=== PATIENT | male | born 1950 | race Caucasian/White ===

== ENCOUNTER 2017-12-28 01:47 | Outpatient (CLI) | payer MEDICARE, OTHER, SELFPAY ==
[2017-12-28 10:53] LABS: Hemoglobin A1C 10.5 % (4.5-6.2)
== END 2017-12-28 02:07 ==
PROVIDERS: PCP Family Medicine
DX: E11.9 Type 2 diabetes mellitus without complications (principal)
CPT/HCPCS: 36415; 83036

== ENCOUNTER 2019-01-11 08:33 | Outpatient (CLI) | payer MEDICARE, OTHER, SELFPAY ==
--- NOTE | 2019-01-11 09:45 | DI.RAD_ITS ---
EXAM: XR KNEE RT 3V AP,LAT,BIMAL INDICATION: 8 month hx pain right knee, M25.561. COMPARISON: No exams were available for comparison TECHNIQUE: 2D digital imaging was performed. FINDINGS: The joint spaces are well maintained. Chondrocalcinosis is noted in the menisci. No joint effusion is visible. There is mild periarticular spurring. There is spurring at the tibial tubercle as well as at the Achilles insertion and patellar tendon origin. There is mild anterior soft tissue swellin g. Vascular calcifications are incidentally noted. IMPRESSION: Mild degenerative changes. Chondrocalcinosis.
== END 2019-01-11 08:53 ==
PROVIDERS: PCP Family Medicine; Visit Provider Family Medicine
DX: M25.561 Pain in right knee (principal); M17.11 Unilateral primary osteoarthritis, right knee
CPT/HCPCS: 73562

== ENCOUNTER 2019-05-16 08:51 | Outpatient (CLI) | payer MEDICARE, OTHER, SELFPAY ==
[2019-05-16 13:16] LABS: BUN 20 mg/dL (7-18); CREATININE 1.04 mg/dL (0.70-1.30); Calcium 9.5 mg/dL (8.5-10.1); Calculated LDL 79 mg/dL (<100); Chloride 99 mmol/L (98-107); Cholesterol 158 mg/dL (<200); Glucose 201 mg/dL (74-106); HDL Cholesterol 73 mg/dL (40-60); Potassium 4.8 mmol/L (3.5-5.1); Sodium 136 mmol/L (136-145); Triglyceride 31 mg/dL (<150)
[2019-05-16 13:54] LABS: Hemoglobin A1C 10.4 % (3.8-5.6)
== END 2019-05-16 09:11 ==
PROVIDERS: PCP Family Medicine; Visit Provider Family Medicine
DX: I10 Essential (primary) hypertension (principal); E11.39 Type 2 diabetes mellitus with other diabetic ophthalmic complication; E11.65 Type 2 diabetes mellitus with hyperglycemia
CPT/HCPCS: 36415; 80048; 80061; 83036

== ENCOUNTER 2020-01-17 10:36 | Outpatient (REF) | payer MEDICARE, OTHER, SELFPAY | END 2020-01-17 10:56 | LOC: LBN 10:36 | PROVIDERS: PCP Family Medicine; Visit Provider Emergency Medicine | DX: M25.461 Effusion, right knee (principal) | CPT/HCPCS: 87070; 87205 ==

== ENCOUNTER 2020-01-21 01:18 | Outpatient (CLI) | payer MEDICARE, OTHER, SELFPAY ==
--- NOTE | 2020-01-21 07:15 | DI.RAD_ITS ---
EXAM: XR KNEE RT 3V AP,LAT,BIMAL CLINICAL HISTORY: right knee pain/effusion,M25.461 TECHNIQUE: COMPARISON: CR XR KNEE RT 3V AP,LAT,BIMAL from 01/11/2019 FINDINGS: Three views were obtained. There is moderate to severe narrowing of the medial tibiofemoral cartilag inous joint space. There is presumed chondral calcification probably in the medial meniscus. There is mild scalloping of the articular surface the medial femoral condyle. Slight marginal osteophyte f ormation noted at multiple sites. Patellar enthesophytes noted. No other significant bony abnormali ty seen. IMPRESSION: Degenerative changes most prominent involving medial tibiofemoral joint. RADIATION DOSE DELIVERED: Total DLP
== END 2020-01-21 01:38 ==
PROVIDERS: PCP Family Medicine; Visit Provider Family Medicine
DX: M17.11 Unilateral primary osteoarthritis, right knee (principal); M76.9 Unspecified enthesopathy, lower limb, excluding foot
CPT/HCPCS: 73562

== ENCOUNTER 2020-01-28 02:18 | Outpatient (CLI) | payer MEDICARE, OTHER, SELFPAY ==
--- NOTE | 2020-01-28 13:00 | NS.NUTBLAN_ITS ---
ASSESSMENT: Devin ( 69 y/o male) presents with referral for DM 2 education r/t elevated A1c. He is on glipizide and 1000mg metformin BID. He reports that he is active working in his garden. Drives truck for work. Reviewed diet hx revealing typical breakfast of oatmeal, apples, coffee with C+S. He says he has an occasional doughnut. Lunches are usually sandwiches, drinks seltzer water. Supper is often with his family and he eats whatever they have. An example he gave was costello's pie. He lost his over the summer and she was the one who did most of the cooking. Devin stated the took his BG this am and it was 140. A1c was 11.8 on 01/06 and shows documentation of >10% X 4 mos. 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 He does not appear to be overweight and reports that he is ~185lbs. He has been having knee problems and states that anu is arranging for ortho appt through his PCP. BG reading with fingerstick on this visit revealed 237mg/dl ~1.5 hrs postprandial. Devin reported eating 4 pieces cheese for lunch.He does not use internet, email or Phone apps normally. INTERVENTION: Reviewed desirable BG ranges, CHO counting concepts, Carbs and cals phone sandrine, Provided literature and demonstration on aforementioned. Explained and provided literature with examples on CHO and PRO pairing to help with BG levels. Provided new ACCU-Check Guide Me glucometer with 10 test strips. strips. Reviewed risks and benefits of [facility] diet compliance. Gave guidelines and goals for CHO intake ( <60g per meal period). Explained simple vs. complex CHO. Recommended community outreach health gymnastics coach for support. Recommended that he utilize [employer] sandrine with new glucometer for remote monitoring by RD. MONITORING and EVAL: Devin has agreed to have his grandson or other family member help him to set up the carbs and cals phone sandrine to help with CHO counting. He has agreed to return for F/U visit with this RD on 03/23/20. He has agreed to track his BG 1x/day staggering FBG and meal periods daily for one week. He states he will consider the tracking sandrine on his new glucometer.
== END 2020-01-28 02:38 ==
PROVIDERS: PCP Family Medicine; Visit Provider Dietitian, Registered
DX: E11.9 Type 2 diabetes mellitus without complications (principal); Z79.84 Long term (current) use of oral hypoglycemic drugs; Z71.3 Dietary counseling and surveillance
CPT/HCPCS: 97802

== ENCOUNTER 2020-01-30 01:16 | Outpatient (CLI) | payer MEDICARE, OTHER, SELFPAY ==
[2020-01-30 12:26] LABS: Abs Immature Grans 0.01 10^3/uL (0.0-0.06); Absolute Basophil Count 0.04 10^3/uL (0.0-0.2); Absolute Eosinophil Count 0.13 10^3/uL (0.0-0.7); Absolute Lymphocyte Count 1.83 10^3/uL (1.2-3.4); Absolute Monocyte Count 0.57 10^3/uL (0.1-0.8); Absolute Neutrophil Count 3.51 10^3/uL (1.2-6.7); Basophils % 0.7; Eosinophils % 2.1; HCT 41.5 % (40.0-50.0); HGB 14.6 g/dL (13.5-17.5); Immature Grans % 0.2; MCH 30.2 pg (27.0-33.0); MCHC 35.2 % (32.0-36.0); MCV 85.7 fL (80-95); MPV 10.9 fL (8.0-11.0); Monocytes % 9.4; Neutrophils % 57.6; Nucleated RBC 0 %; Platelet Count 233 10^3/uL (130-400); RBC 4.84 10^6/uL (4.36-5.78); RDW 12.6 % (11.8-14.1); RDW-SD 39.2 fL; WBC 6.09 10^3/uL (4.4-10.8)
[2020-01-30 13:09] LABS: Iron 108 ug/dL (65-175); Total Iron Binding Capacity 368 ug/dL (250-450); Transferrin Sat 29 % (20-55)
[2020-01-30 13:24] LABS: ALT 22 U/L (16-63); AST 17 U/L (15-37); Albumin 4.3 g/dL (3.4-5.0); Alkaline Phosphatase 60 U/L (46-116); Anion Gap 8.8 mmol/L (3-11); BUN 27 mg/dL (7-18); Bilirubin, Total 1.1 mg/dL (0.2-1.0); CO2 27.2 mmol/L (21.0-32.0); Calcium 9.4 mg/dL (8.5-10.1); Chloride 96 mmol/L (98-107); Ferritin 367 ng/mL (26-388); Glucose 133 mg/dL (74-106); Potassium 4.9 mmol/L (3.5-5.1); Sodium 132 mmol/L (136-145); Total Protein 7.7 g/dL (6.4-8.2)
== END 2020-01-30 01:36 ==
PROVIDERS: PCP Family Medicine; Visit Provider Family Medicine
DX: E11.9 Type 2 diabetes mellitus without complications (principal); M11.20 Other chondrocalcinosis, unspecified site; R79.89 Other specified abnormal findings of blood chemistry
CPT/HCPCS: 36415; 80053; 82728; 83540; 83550; 85025

== ENCOUNTER → 2020-02-05 10:47 | Outpatient (BNVA) | payer MEDICARE, OTHER, SELFPAY | PROVIDERS: PCP Family Medicine; Referring Provider Family Medicine; Visit Provider Orthopaedic Surgery | DX: M25.461 Effusion, right knee (principal); M25.561 Pain in right knee; M17.11 Unilateral primary osteoarthritis, right knee | CPT/HCPCS: 20610; 99201; J1040 ==

== ENCOUNTER 2020-02-05 12:23 | Outpatient (REF) | payer MEDICARE, OTHER, SELFPAY ==
[2020-02-05 13:42] LABS: Clarity Clear
[2020-02-05 13:47] LABS: Mononuclear Cells 96 %; Nucleated Cells 288 uL (0); Polynuclear Cells 4 %
[2020-02-05 14:19] LABS: Crystals (BF) No Crystals seen
== END 2020-02-05 12:43 ==
LOC: LBN 12:23
PROVIDERS: PCP Family Medicine; Visit Provider Orthopaedic Surgery
DX: M25.461 Effusion, right knee (principal)
CPT/HCPCS: 87070; 87205; 89051; 89060

== ENCOUNTER 2020-06-08 08:36 | Outpatient (CLI) | payer MEDICARE, OTHER, SELFPAY ==
--- NOTE | 2020-06-08 08:30 | RT.EKG_ITS ---
APPROVED REPORT Exam: Resting ECG Patient Location: O HR:85 bpm ECG Measurements Heart Rate 85 AXIS WY 121 P 64 QRSd 92 QRS 17 QT 367 T 7 QTc 436 Conclusion Sinus rhythm...normal P axis, V-rate 60- 99
== END 2020-06-08 08:37 | disposition home or self-care (01) ==
LOC: DI.CM 08:37
PROVIDERS: PCP Family Medicine; Visit Provider Nurse Practitioner Family
DX: Z01.818 Encounter for other preprocedural examination (principal); I10 Essential (primary) hypertension
CPT/HCPCS: 93010

== ENCOUNTER 2021-05-03 03:46 | Outpatient (CLI) | payer MEDICARE, OTHER, SELFPAY ==
[2021-05-03 11:25] LABS: Calculated LDL 72 mg/dL (<100); Cholesterol 162 mg/dL (<200); HDL Cholesterol 83 mg/dL (40-60); Triglyceride 38 mg/dL (<150)
== END 2021-05-03 03:47 | disposition home or self-care (01) ==
LOC: LBO 03:46
PROVIDERS: PCP Nurse Practitioner Family; Visit Provider Nurse Practitioner Family
DX: E78.5 Hyperlipidemia, unspecified (principal); E11.9 Type 2 diabetes mellitus without complications; Z79.4 Long term (current) use of insulin
CPT/HCPCS: 36415; 80061; 83036

== ENCOUNTER 2021-06-21 11:26 | Outpatient (CLI) | payer MEDICARE, OTHER, SELFPAY ==
--- NOTE | 2021-06-21 10:15 | DI.RAD_ITS ---
Exam(s) XR KNEE RT 3V AP,LAT,BIMAL EXAM: XR KNEE RT 3V AP,LAT,BIMAL INDICATION: right knee pain. COMPARISON: CR XR KNEE RT 3V AP,LAT,BIMAL from 01/21/2020 TECHNIQUE: 2D digital imaging was performed. Two views FINDINGS: A right total knee prosthesis is seen. The components appear show satisfactory alignment. There are no surrounding bony lucencies. Joint effusion is visible. There is anterior soft tissue swelling. Impression: Joint effusion and anterior soft tissue swelling. DATA REPOSITORY: RADIATION DOSE DELIVERED:
== END 2021-06-21 11:27 | disposition home or self-care (01) ==
LOC: DIORS 11:26
PROVIDERS: PCP Nurse Practitioner Family; Referring Provider Nurse Practitioner Family; Visit Provider Student in an Organized Health Care Education/Training Program
DX: M25.561 Pain in right knee (principal); M25.461 Effusion, right knee; Z96.651 Presence of right artificial knee joint; M24.661 Ankylosis, right knee; T84.84XA Pain due to internal orthopedic prosthetic devices, implants and grafts, initial encounter
CPT/HCPCS: 73562; 99214

== ENCOUNTER 2021-06-24 02:11 | Outpatient (CLI) | payer MEDICARE, OTHER, SELFPAY ==
--- NOTE | 2021-06-24 06:30 | DI.US_ITS ---
Exam(s) US LOWER EXTREMITY VENOUS RT EXAM: US LOWER EXTREMITY VENOUS RT CLINICAL HISTORY: pain,swelling-?DVT,painful total knee replacement, m79.604. TECHNIQUE: Lower extremity venous ultrasound performed using grayscale, color-flow, and spectral Do ppler analysis. COMPARISON: No exams were available for comparison FINDINGS: The common femoral, femoral and popliteal veins demonstrate normal compressibility, augmentation, and color Doppler. The posterior tibial veins are patent. No saphenous vein thrombosis or other superfi cial venous thrombosis is seen. 4.6 centimeter maximal dimension Motta's cyst. IMPRESSION: Motta's cyst no evidence of DVT. DATA REPOSITORY:
== END 2021-06-24 02:31 ==
PROVIDERS: PCP Nurse Practitioner Family; Visit Provider Student in an Organized Health Care Education/Training Program
DX: M79.604 Pain in right leg (principal); T84.84XA Pain due to internal orthopedic prosthetic devices, implants and grafts, initial encounter; Z96.651 Presence of right artificial knee joint; M71.21 Synovial cyst of popliteal space [Baker], right knee
CPT/HCPCS: 93971

== ENCOUNTER 2021-07-06 03:22 | Outpatient (CLI) | payer MEDICARE, OTHER, SELFPAY ==
[2021-07-06 07:33] LABS: ESR 1 mm/hr (0-20)
[2021-07-06 08:43] LABS: C-Reactive Protein 0.13 mg/dL (0.0-0.3)
[2021-07-06 10:17] LABS: Hemoglobin A1C 8.9 % (<5.7)
== END 2021-07-06 03:23 | disposition home or self-care (01) ==
LOC: LBO 03:22
PROVIDERS: PCP Nurse Practitioner Family; Visit Provider Student in an Organized Health Care Education/Training Program
DX: E11.9 Type 2 diabetes mellitus without complications (principal); Z79.4 Long term (current) use of insulin; T84.84XA Pain due to internal orthopedic prosthetic devices, implants and grafts, initial encounter; Z96.651 Presence of right artificial knee joint
CPT/HCPCS: 36415; 85652; 83036; 86140

== ENCOUNTER 2021-07-26 01:56 | Outpatient (CLI) | payer MEDICARE, OTHER, SELFPAY ==
[2021-07-27 11:30] LABS: COVID-19 RT-PCR UVMMC Result Negative (Negative)
== END 2021-07-26 01:57 | disposition home or self-care (01) ==
LOC: LBO 01:56
PROVIDERS: PCP Nurse Practitioner Family; Visit Provider Student in an Organized Health Care Education/Training Program
DX: Z20.822 Contact with and (suspected) exposure to COVID-19 (principal); Z01.818 Encounter for other preprocedural examination
CPT/HCPCS: 87635; U0003; U0005

== ENCOUNTER 2021-07-27 12:23 | Day surgery (SDC) | payer MEDICARE, OTHER, SELFPAY ==
[2021-07-27] VITALS (8 sets, daily range): BP systolic 75–151; BP diastolic 43–99; PULSE 73–91; RESP 13–25; TEMP 36.2–36.6; O2SAT 92–99; BMI 26.1
[2021-07-27] MEDS: Acetaminophen 500 MG TAB 1000 MG PO (12:54)
[2021-07-27] MEDS: Gabapentin 300 MG CAP PO (12:55)
[2021-07-27] MEDS: Celecoxib 200 MG CAP 400 MG PO (12:55)
[2021-07-27] MEDS: Lactated Ringers 1,000 ML 80 ML IV (13:30)
--- NOTE | 2021-07-27 13:56 | ANES.PREOP_ITS ---
General Info Date of Service Date Performed: 07/27/21 Height: 5 ft 11 in Weight: 85 kg Body Mass Index (BMI): 26.1 Surgical Procedure: Operation Date: 07/27/21 15:25 Proposed Procedure Side Surgeon p Knee Arthroscopy Synovectomy & Manipulation Right Varghese Schwartz MD Meds Allergies and Home Medications Allergies Allergy/AdvReac Type Severity Reaction Status Date / Time No Known Allergies Allergy Verified 07/27/21 12:42 Home Medication Medication Instructions Recorded aspirin 325 mg tablet 0.5 tab PO DAILY tab-cap 08/29/12 cinnamon bark 500 mg capsule 1,000 mg PO DAILY 08/30/12 magnesium oxide 500 mg PO DAILY 01/06/14 triamcinolone acetonide 0.1 % 1 applic TP BID #30 gm 01/10/19 topical cream indomethacin 50 mg capsule 50 mg PO TID PRN #30 cap 01/10/20 blood-glucose meter #1 ea 02/05/20 blood sugar diagnostic #100 ea 04/01/20 lancets #100 ea 04/01/20 metformin 1,000 mg tablet 1,000 mg PO BID #180 tab-cap 06/05/20 (Glucophage) lisinopril 20 mg tablet 20 mg PO DAILY #90 tab 06/08/20 lovastatin 40 mg tablet 40 mg PO DAILY #90 tab-cap 08/07/20 sildenafil 25 mg tablet (Viagra) 25 mg PO DAILY PRN #2 tab 01/04/21 glipizide 10 mg tablet (Glucotrol) 10 mg PO BID #180 tab-cap 04/16/21 blood sugar diagnostic (Accu-Chek #100 ea 05/07/21 Guide test strips) varicella-zoster glycoE vacc-[id number] 0.5 ml IM ONCE #1 each 05/07/21 adj(PF) 50 mcg/0.5 mL IM susp, kit (Shingrix (PF)) acetaminophen 500 mg tablet mg 07/27/21 (Tylenol Extra Strength) ibuprofen 200 mg tablet (Advil) 600 mg PO Q6H PRN 07/27/21 Current Visit Medications: Current Medications Generic Name Dose Route Start Last Admin Trade Name Freq PRN Reason Stop Dose Admin Acetaminophen 1,000 mg 07/27/21 06:00 07/27/21 12:54 Acetaminophen 500 Mg Tab PO 1,000 mg PREOP ELIZABETH Administration Celecoxib 400 mg 07/27/21 06:00 07/27/21 12:55 Celecoxib 200 Mg Cap PO 400 mg PREOP ELIZABETH Administration Gabapentin 300 mg 07/27/21 06:00 07/27/21 12:55 Gabapentin 300 Mg Cap PO 300 mg PREOP ELIZABETH Administration Ringer's Solution 1,000 mls @ 80 mls/hr 07/27/21 06:00 07/27/21 13:30 IV 08/25/21 23:59 80 mls/hr INFUSION ELIZABETH Administration Cefazolin Sodium/Dextrose 2 gm in 50 mls @ 100 mls/hr 07/27/21 06:00 Ancef Duplex IVPB 08/25/21 23:59 PREOP ELIZABETH IV Miscellaneous Supplies 1 each 07/27/21 06:00 Iv Access IV 08/25/21 23:59 DIRECTED ELIZABETH Sodium Chloride 0 ml 07/27/21 06:00 Normal Saline Flush 10 Ml Syr IV 08/25/21 23:59 PRN PRN Sodium Chloride 0 ml 07/27/21 06:00 Normal Saline 10 Ml Vial IJ 08/25/21 23:59 DIRECTED PRN Sterile Water 0 ml 07/27/21 06:00 Water,Injection,Sterile 10 Ml Vial IJ 08/25/21 23:59 DIRECTED PRN PFSH Active Problems Active Problems: Problem Status Onset Code Diabetic retinopathy 09/04/12 E11.319 Hyperlipidemia 09/05/13 E78.5 Osteoarthritis of right knee M17.11 Positional vertigo Essential hypertension I10 Chondrocalcinosis M11.20 Effusion, right knee M25.461 Osteoarthritis of knee M17.10 Diabetes mellitus type 2, insulin dependent E11.9, Z79.4 Bunion M21.619 Onychomycosis B35.1 Actinic keratosis L57.0 Erectile dysfunction N52.9 Onychogryphosis L60.2 Callus of foot L84 History of total right knee replacement Z96.651 Painful total knee replacement, right T84.84XA, Z96.651 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 POP; LEFT, jpt. reports both sides Hx of colonoscopy Hx of total knee arthroplasty R knee Tobacco Smoking/Tobacco Use Status: Never Passive smoking exposure: Yes Alcohol Alcohol Intake: current Alcohol intake frequency: a few times a month Alcohol type: beer Substance Use Substance use: Never Substance use type: does not use Details: alcohol: t-3. one beer Vital Signs and Lab Results Vital Signs Most Recent Vital Signs in EMR: Most Recent Vital Signs Temp Pulse Resp BP Pulse Ox 36.6 C 91 H 16 151/79 H 98 07/27/21 13:01 07/27/21 13:01 07/27/21 13:01 07/27/21 13:01 07/27/21 13:01 Point of Care Results Point of Care Results: Finger Stick Blood Glucose 195 07/27/21 13:21 Lab Results Blood Type / Crossmatch: No Data to Display Complete Blood Count: No Data to Display Complete Metabolic Panel: Hemoglobin A1c 8.9 % (<5.7) H 07/06/21 07:24 07/06/21 C-Reactive Protein 0.13 mg/dL (0.0-0.3) 07/06/21 07:24 07/06/21 Liver Function Panel: No Data to Display Coagulation Panel: No Data to Display Cardiac Panel: No Data to Display Arterial Blood Gas: No Data to Display Venous Blood Gas: No Data to Display Pancreas Panel: No Data to Display Thyroid Panel: No Data to Display Infectious Disease: Coronavirus (COVID-19)(PCR) Negative (Negative) 07/26/21 08:15 07/26/21 Blood Cultures: No Data to Display Toxicology Panel: No Data to Display Imaging and Studies Imaging and Studies Study information below may be from another EMR and interpreted by another provider. Please see original notes in EMR for more complete details. EKG Summary: DATE/TIME OF SERVICE: 06/08/20826 : 1950PERFORMING LOCATION: [facility] APPROVED REPORT Exam: Resting ECG Patient Location: O HR:85 bpm ECG Measurements Heart Rate 85 AXIS NC 121 P 64 QRSd 92 QRS 17 QT 367 T7 QTc 436 Conclusion Sinus rhythm...normal P axis, V-rate 60- 99 Anesthesia Assessment and Plan Anesthesia History Personal History: No History of Anesthesia Complications Family History: No Family History of Anesthesia Complications Exercise Tolerance Exercise Tolerance: Metabolic Equivalents>4 Pertinent Negatives Pertinent Negatives: No Symptoms of GERD Cardiac & Pulmonary Exam Cardiac Exam: Normal S1/S2 Heart Sounds Pulmonary Exam: Clear Bilateral Breath Sounds Implantable Cardiac Device Does patient have a Pacemaker or an ICD?: No Airway Exam Known Difficult Airway: No Mallampati Class: 1 Mouth Opening: Narrow (< 3cm) Thyromental Distance: Greater than 3 cm Neck Range of Motion: Full ROM Neck Circumference: Normal Teeth Condition: Other (Has lower front teeth only) ASA Classification ASA Score: ASA 3 Emergency Case?: No NPO Status NPO Status: NPO Clears >2 hours, Solids >8 hours Anesthesia Plan Resuscitation Status: Full Code Anesthesia Technique: General Anesthesia Airway Planned: LMA Monitors Used: Standard Monitors
--- NOTE | 2021-07-27 13:57 | HPE_ITS ---
Assessment and Plan Assessment and plan (1) Painful total knee replacement, right: Status: Acute (2) Fibrosis of right knee joint: Status: Acute Assessment and plan: Bradley is a 70-year-old who has a right knee replacement. He has had difficulties with stiffness and with pain. As an option to hopefully treat both of those I offered arthroscopic synovectomy of the right knee. I did discuss him that this is a treatment that may not improve his symptoms but has a chance to. Is imperative that he works diligently with his range of motion and with daily exercises following the surgery. Furthermore, he does have a painful deep suture which I can remove at the same time with a small incision. I reviewed all this with him. I discussed the risk of the procedure to include bleeding, infection, pain, stiffness, damage to nerves and vessels, damage to muscle and tendons, blood clot, continued symptoms. Despite these risk, he elects to proceed. History of Present Illness Narrative: Bradley is a 70-year-old who is status post right knee replacement. Fortunately he has had issues with stiffness and pain about the right knee. He has failed a host of conservative option and is here today for knee arthroscopy with synovectomy. [facility] All Active Problems Diabetic retinopathy (Acute 09/04/12) Hyperlipidemia (Acute 09/05/13) Osteoarthritis of right knee (Acute) Positional vertigo (Acute) Essential hypertension (Acute) Chondrocalcinosis (Acute) knees Effusion, right knee (Acute) Osteoarthritis of knee (Acute) Diabetes mellitus type 2, insulin dependent (Acute) Bunion (Acute) Onychomycosis (Acute) Actinic keratosis (Acute) Erectile dysfunction (Acute) Onychogryphosis (Acute) Callus of foot (Acute) History of total right knee replacement (Acute) Painful total knee replacement, right (Acute) Fibrosis of right knee joint (Acute) Medical History Hx of essential hypertension Hx of gout Hx of type 2 diabetes mellitus Hx of vertigo Surgical History Extraction of cataract 04/29/14; DR. POP; LEFT, jpt. reports both sides Hx of colonoscopy Hx of total knee arthroplasty R knee Family History Mother , 80 Cancer Father , at 24 of blood poisoning No problems noted. Sister No problems noted. Brother No problems noted. Maternal Grandfather , 75 Heart disease Paternal Grandfather No problems noted. Maternal Grandmother No problems noted. Paternal Grandfather No problems noted. Son No problems noted. Son No problems noted. Son No problems noted. Daughter No problems noted. Social History Smoking/Tobacco Use Status: Never Smoking risk assessment performed?: Yes Alcohol Intake: current Alcohol Intake frequency: a few times a month Alcohol type: beer Drug use: Never Substance use type: does not use Details: alcohol: t-3. one beer Caregiver/Support person: No Household members: none Housing: house Communication Needs: None Pets and animals: Yes Pets and animals: dog(s) Sexually active: No Do you think of yourself as: straight/heterosexual Current gender identity: male What is your relationship status?: How often do you talk on the phone with friends or family?: three or more times per week How often do you get together with friends or relatives?: twice per week How often do you attend quaker or bahai services?: decline to answer Do you belong to any clubs or organized social groups?: no Panel score (0-1 are the most socially isolated patients): 1 What type of physical activity do you participate in: other Details: Bowling and decline to answer Duration: 15-30 minutes/day Frequency: 1-2 times per week Bekah/Pentecostal: None Special bekah needs: No Seatbelt use: always Helmet use: Yes Helmet use: sometimes Drive intox or ride w/intox combine driver: No Do you feel safe at home: Yes Do you feel safe in your relationship?: Yes Meds Allergies and Home Medications Allergies Allergy/AdvReac Type Severity Reaction Status Date / Time No Known Allergies Allergy Verified 07/27/21 12:42 Home Medications Medication Instructions Recorded Confirmed Type aspirin 325 mg tablet 0.5 tab PO DAILY tab-cap 08/29/12 07/27/21 History cinnamon bark 500 mg capsule 1,000 mg PO DAILY 08/30/12 07/27/21 History magnesium oxide 500 mg PO DAILY 01/06/14 07/27/21 History triamcinolone acetonide 0.1 % 1 applic TP BID #30 gm 01/10/19 07/27/21 Rx topical cream indomethacin 50 mg capsule 50 mg PO TID PRN #30 cap 01/10/20 07/27/21 Rx blood-glucose meter #1 ea 02/05/20 07/26/21 Rx blood sugar diagnostic #100 ea 04/01/20 07/26/21 Rx lancets #100 ea 04/01/20 07/26/21 Rx metformin 1,000 mg tablet 1,000 mg PO BID #180 tab-cap 06/05/20 07/27/21 Rx (Glucophage) lisinopril 20 mg tablet 20 mg PO DAILY #90 tab 06/08/20 07/27/21 Rx lovastatin 40 mg tablet 40 mg PO DAILY #90 tab-cap 08/07/20 07/27/21 Rx sildenafil 25 mg tablet (Viagra) 25 mg PO DAILY PRN #2 tab 01/04/21 07/27/21 Rx glipizide 10 mg tablet (Glucotrol) 10 mg PO BID #180 tab-cap 04/16/21 07/27/21 Rx blood sugar diagnostic (Accu-Chek #100 ea 05/07/21 07/26/21 Rx Guide test strips) varicella-zoster glycoE vacc-AS01B 0.5 ml IM ONCE #1 each 05/07/21 07/26/21 Rx adj(PF) 50 mcg/0.5 mL IM susp, kit (Shingrix (PF)) acetaminophen 500 mg tablet mg 07/27/21 History (Tylenol Extra Strength) ibuprofen 200 mg tablet (Advil) 600 mg PO Q6H PRN 07/27/21 07/27/21 History Exam Resp Effort & Inspection: normal respiratory effort Auscultation: clear to auscultation bilaterally Cardio Rate: regular rate Rhythm: regular rhythm Extrem Other: Range of motion is approximately 5 to 105 degrees. There is significant blocks to deeper flexion. There is also prominent suture palpated just medial to the central portion of the incision over the patella. Results Last Vital Signs Temp 36.6 C 07/27/21 13:01 Pulse 91 H 07/27/21 13:01 Resp 16 07/27/21 13:01 BP 151/79 H 07/27/21 13:01 Pulse Ox 98 07/27/21 13:01
[2021-07-27] MEDS: ceFAZolin 2 GM/50 ML BAG IVPB (14:28)
[2021-07-27] MEDS: Bupivacaine 0.5% Pres-Free 30 ML VIAL (14:51)
--- NOTE | 2021-07-27 15:18 | W.PM.DSUDISC ---
Discharge Plan Disposition Patient Disposition: HOME Condition: Good Discharge Details Reason For Visit: Right Knee Pain/Arthrofibrosis after TKA Attending Provider: Varghese Schwartz Primary Care Provider: Laron Prado Home Meds and New Rx's Prescriptions: New hydrocodone-acetaminophen 5-325 mg tablet 1 tab PO Q6H PRN (Reason: pain) Qty: 10 0RF acetaminophen 500 mg tablet 500 mg PO Q6H PRN PRN (Reason: pain) Qty: 40 3RF ibuprofen 600 mg tablet 600 mg PO TID PRN (Reason: pain) Qty: 60 3RF Continued triamcinolone acetonide 0.1 % cream 1 applic TP BID Qty: 30 2RF lisinopril 20 mg tablet 20 mg PO DAILY Qty: 90 3RF sildenafil [Viagra] 25 mg tablet 25 mg PO DAILY PRN (Reason: sexual activity) Qty: 2 4RF Rx Instructions: administer 30 minutes to 4 hours before activity (DME) Accu-Chek Guide test strips Strip See Rx Instructions .Route Qty: 100 3RF Rx Instructions: Daily Shingrix (PF) 50 mcg/0.5 mL suspension for reconstitution 0.5 ml IM ONCE Qty: 1 0RF Label Comments: pt. states last shot 1.5 months ago Rx Instructions: as a single dose aspirin 325 MG tablet 0.5 tab PO DAILY 0RF cinnamon bark 500 MG capsule 1,000 mg PO DAILY 0RF magnesium oxide 250 MG tablet 500 mg PO DAILY 0RF indomethacin 50 mg capsule 50 mg PO TID PRN (Reason: gout) Qty: 30 0RF Rx Instructions: administer with food or milk (DME) blood-glucose meter Kit See Rx Instructions .ROUTE .MEDSUPPLY Qty: 1 0RF Label Comments: pt. reports he last tested last monday, states he only tests it occasionally Rx Instructions: As directed (DME) blood sugar diagnostic Strip See Rx Instructions .ROUTE .MEDSUPPLY Qty: 100 3RF Rx Instructions: bid (DME) lancets Misc See Rx Instructions .ROUTE .MEDSUPPLY Qty: 100 3RF Rx Instructions: Twice daily metformin [Glucophage] 1,000 mg tablet 1,000 mg PO BID Qty: 180 4RF lovastatin 40 mg tablet 40 mg PO DAILY Qty: 90 4RF glipizide [Glucotrol] 10 mg tablet 10 mg PO BID Qty: 180 4RF acetaminophen [Tylenol Extra Strength] 500 mg Tablet 0RF Label Comments: pt. reports taking 3 when he takes them Discontinued ibuprofen [Advil] 200 mg Tablet 600 mg PO Q6H PRN0RF Discharge Instructions Additional Instructions: Knee Discharge Instructions Activity: You should begin moving as soon as possible. You may work on flexion but also equally maintain extension. You may bear weight as tolerated, using crutches only for support/comfort. You should apply ice to help with swelling and elevate when possible (especially in the first few days). Dressings: The knee dressing may come down after 48 hours. You may shower and get the wound wet at that time. You should keep the wounds covered with a bandaid until follow-up. Medications: - Rarely does this require any stronger pain medications. - Recommend to take up to 1000mg of Acetaminophen (Tylenol) and 600mg of Ibuprofen (Advil) every 8 hours as needed. These larger strength tablets were called in but you also may use [id number]. Follow-up: 7-10 days Referrals: Varghese Schwartz MD [ [facility] STAFF PHYSICIAN] - Activity:: Activity as Tolerated Remove Dressings/Wound Care:: 48 hours Shower/Bathe:: 48 hours Diet:: As Tolerated Discharge Orders Discharge Orders: Discharge Order (Routine); Ordered 07/27/21 Ordered By: Varghese Schwartz DS: Diagnosis Discharge Diagnosis (1) Painful total knee replacement, right: Status: Acute (2) Fibrosis of right knee joint: Status: Acute
--- NOTE | 2021-07-27 15:39 | W.ANESPOSTOP ---
Postoperative Evaluation Date, Time and Location Date Performed: 07/27/21 Time Performed: 15:40 Patient Location: Day Surgery Unit Vital Signs Most Recent Imported Vital Signs: Most Recent Vital Signs Temp Pulse Resp BP Pulse Ox 36.4 C L 85 25 H 120/61 95 07/27/21 15:37 07/27/21 15:37 07/27/21 15:37 07/27/21 15:37 07/27/21 15:37 Pain Score Most Recent Pain Score: Most Recent Pain Score Pain Level 0 07/27/21 15:37 Assessment Mental Status: Awake (Alert & Oriented to Patient Baseline) Airway and Respiratory Function: Patent airway with normal (patient baseline) respiratory exam Cardiovascular Function: Hemodynamically Stable Hydration Status: Adequately Hydrated Nausea & Vomiting: No Nausea or Vomiting Pain: Pain is tolerable per patient Peripheral Nerve Block: Patient did not receive a nerve block
--- NOTE | 2021-07-27 21:00 | W.PM.OP ---
Date of service: 07/27/21 Time of Service: 15:00 Operative Note Operative Note DATE OF PROCEDURE: 07/27/21 PRE-OP DIAGNOSIS: Arthrofibrosis and Pain of Knee Replacement - RIGHT POST-OP DIAGNOSIS: same PROCEDURE: Arthroscopic Synovectomy of 3 Compartments - RIGHT Knee SURGEON: Varghese Schwartz ANESTHESIA TYPE: General LMA/ETT Refer to Anesthesia Record ESTIMATED BLOOD LOSS: 0 PATHOLOGY: none sent TOURNIQUET TIME: 0 COMPLICATIONS: None Patient was transported to: PACU Patient's condition: stable Indications: I have seen Bradley in clinic for symptoms of arthrofibrosis and pain of the knee following knee replacement surgery. Nonoperative measures were exhausted but disability due to lack of motion persisted. I discussed knee arthroscopy with synovectomy with maniuplation with the patient. I reviewed the risks of the procedure to include, but not limited to, bleeding, infection, pain, continued stiffness, recurrence, blood clot. Despite these risks, the patient elected to proceed. Findings: Preoperative Range of Motion: Flexion: 110 Extension:5 Postoperative Range of Motion: Flexion:130 Extension:5 Procedure Description: Bradley was greeted in the preoperative holding area where the correct side was identified and marked. The consent was reviewed with the patient and signed. The history and physical was updated. All questions were answered. He was taken back to the operating room. The patient was placed into the supine position on the operating room table. All bony prominences were well padded. Prophylactic antibiotics in the form of Cefazolin were administered. Preoperative range of motion was assessed as 5 - 110. The right leg was then prepped with Chloraprep and draped in a standard fashion with stockinette and extremity drape. A timeout to confirm correct identity, side and site, procedure, allergies, anesthesia, and medical concerns was performed. The leg was placed into a pneumatic leg stock, SPIDER2. A standard lateral portal was made at the lateral border of the patella tendon in line with the inferior pole of the patella, soft spot. The skin and deep tissue was incised sharply and the blunt trochar was inserted atraumatically. At this point had visualization of the femoral component. A superolateral portal was then established with spinal needle localization just superior and lateral to the patella. A knife was taken down through the skin and soft tissue to enter the knee joint. Starting in the superior compartment above the femoral component and anterior to the femur I released all scarring between the anterior femoral synovium and the overlying extensor mechanism. This was taken through all of any noticeable scar tissue until the superior patellar pouch was fully released and mobile. This resection was carried out mostly with electrocautery as well as shaver. Once this was released fully from lateral to medial superiorly I then continue working down the lateral gutter. All scar tissue in the lateral gutter was released so there is normal space and movement between the capsular tissues and the edge of the femoral component and femur. This was taken down through the lateral gutter such that I was able to identify the polyethylene to its posterior corner. Once again, all scar tissue in this area was resected so the polyethylene was easily visible and there is no interposed tissue in the back or the polyethylene was identified. I think continue to work anteriorly. To continue the synovectomy from the lateral compartment to the anterior compartment into the medial compartment, I placed a medial portal under spinal needle localization. Once this was in place it became another working portal and I continued the synovectomy through the anterior compartment to the medial compartment. Once again, I freed up the medial gutter so I was able to visualize the polyethylene from the anterior posterior margins. There was abundant scar tissue in this location which took some time to remove. Afterward, there was no interposed tissue after full synovectomy was performed. Adhesions between the capsule and the femur were released. This was continued up the medial gutter until it met up with the releases performed previously in the superior compartment. Any remnant scar tissue from around the patella was then removed with a shaver and electrocautery. The arthroscope was brought back into the suprapatellar pouch and the leg was in full extension. The knee was thoroughly irrigated with the arthroscopic fluid on high flow and pressure. Inflow was stopped and excess fluid was removed. The leg was removed from the spider leg stock and manipulation was performed. I first push the knee into flexion and was able to obtain 130 degrees. The wounds were closed with 4-0 Nylon. 0.25% ropivacaine was injected around the portal sites and into the knee. The wounds were dressed with Xeroform, 4x4 gauze, ABD pad, Kerlix and an BONY wrap. A cryo-cuff was applied. The patient tolerated the procedure well and was returned to the Same Day Surgery area in a stable condition suffering no known complication..
== END 2021-07-27 17:15 | disposition home or self-care (01) ==
PROVIDERS: PCP Nurse Practitioner Family; Visit Provider Student in an Organized Health Care Education/Training Program
PROC: (CPT 29870; principal; 2021-07-27 15:15)
DX: T84.84XA Pain due to internal orthopedic prosthetic devices, implants and grafts, initial encounter (principal); M24.661 Ankylosis, right knee; M65.861 Other synovitis and tenosynovitis, right lower leg; Z96.651 Presence of right artificial knee joint; E11.9 Type 2 diabetes mellitus without complications; I10 Essential (primary) hypertension; Z79.84 Long term (current) use of oral hypoglycemic drugs
CPT/HCPCS: 29876; 27570; J0690; J1100; J1885; J2001; J2405; J2704

== ENCOUNTER → 2021-09-03 07:50 | Outpatient (BNVA) | payer MEDICARE, OTHER, SELFPAY | PROVIDERS: PCP Nurse Practitioner Family; Referring Provider Nurse Practitioner Family; Visit Provider Student in an Organized Health Care Education/Training Program | DX: Z47.1 Aftercare following joint replacement surgery (principal); Z96.651 Presence of right artificial knee joint; T84.84XA Pain due to internal orthopedic prosthetic devices, implants and grafts, initial encounter ==

== ENCOUNTER 2021-09-14 00:51 | Outpatient (CLI) | payer MEDICARE, OTHER, SELFPAY ==
[2021-09-14 13:32] LABS: Anion Gap 5.6 mmol/L (3-11); BUN 24 mg/dL (7-18); CO2 31.4 mmol/L (21.0-32.0); CREATININE 1.1 mg/dL (0.70-1.30); Chloride 100 mmol/L (98-107); Glucose 351 mg/dL (74-106); Potassium 5.1 mmol/L (3.5-5.1); Sodium 137 mmol/L (136-145)
[2021-09-14 14:33] LABS: Calcium 9.6 mg/dL (8.5-10.1)
[2021-09-14 21:50] LABS: COMMENT (LAB VIEW ONLY) 98.26 mg/dL; Microalb ug/mg Crea 62.3 ug/mg Cr
== END 2021-09-14 00:52 | disposition home or self-care (01) ==
LOC: LOS 00:51
PROVIDERS: PCP Nurse Practitioner Family; Visit Provider Nurse Practitioner Family
DX: E11.9 Type 2 diabetes mellitus without complications (principal); Z79.4 Long term (current) use of insulin
CPT/HCPCS: 36415; 80048; 82043; 82570

== ENCOUNTER → 2022-03-15 08:45 | Outpatient (BNVA) | payer MEDICARE, OTHER, SELFPAY | PROVIDERS: PCP Nurse Practitioner Family; Referring Provider Nurse Practitioner Family; Visit Provider Nurse Practitioner Adult Health | DX: G56.23 Lesion of ulnar nerve, bilateral upper limbs (principal); G56.03 Carpal tunnel syndrome, bilateral upper limbs | CPT/HCPCS: 95911; 99203; 99213 ==

== ENCOUNTER → 2022-04-22 10:43 | Outpatient (BNVA) | payer MEDICARE, OTHER, SELFPAY | PROVIDERS: PCP Nurse Practitioner Family; Referring Provider Nurse Practitioner Family; Visit Provider Student in an Organized Health Care Education/Training Program | DX: E11.65 Type 2 diabetes mellitus with hyperglycemia (principal); G56.03 Carpal tunnel syndrome, bilateral upper limbs; G56.23 Lesion of ulnar nerve, bilateral upper limbs | CPT/HCPCS: 99213 ==

== ENCOUNTER 2022-05-11 09:28 | Day surgery (SDC) | payer MEDICARE, OTHER, SELFPAY ==
--- NOTE | 2022-05-10 15:03 | W.ANESPRE ---
General Info Height: 6 ft Weight: 86.183 kg Body Mass Index (BMI): 25.7 Surgical Procedure: Operation Date: 05/11/22 12:40 Proposed Procedure Side Surgeon p Wrist ECTR Left Varghese Schwartz MD s Cubital Tunnel Release Left Varghese Schwartz MD Meds Allergies and Home Medications Allergies Allergy/AdvReac Type Severity Reaction Status Date / Time No Known Allergies Allergy Verified 05/10/22 12:28 Home Medication Medication Instructions Recorded aspirin 325 mg tablet 0.5 tab PO DAILY 08/29/12 cinnamon bark 500 mg capsule 1,000 mg PO DAILY 08/30/12 magnesium oxide 500 mg PO DAILY 01/06/14 triamcinolone acetonide 0.1 % 1 applic topical BID apply to 01/10/19 topical cream elbow #30 grams indomethacin 50 mg capsule 50 mg PO TID PRN gout #30 caps 01/10/20 blood-glucose meter #1 ea 02/05/20 sildenafil 25 mg tablet (Viagra) 25 mg PO DAILY PRN sexual activity 01/04/21 #2 tabs acetaminophen 500 mg tablet 500 mg PO DIRECTED 07/27/21 (Tylenol Extra Strength) hydrocodone 5 mg-acetaminophen 325 1 tab PO Q6H PRN pain #10 tabs 07/27/21 mg tablet metformin 1,000 mg tablet 1,000 mg PO BID #180 tab-caps 09/30/21 ibuprofen 600 mg tablet See Rx Instructions .Route 10/11/21 .COMPLEX #60 tabs blood sugar diagnostic #100 ea 04/08/22 glipizide 10 mg tablet 10 mg PO BID #180 tab-caps 04/08/22 lancets #100 ea 04/08/22 lisinopril 20 mg tablet 20 mg PO DAILY #90 tabs 04/08/22 lovastatin 40 mg tablet 40 mg PO DAILY #90 tab-caps 04/08/22 blood sugar diagnostic (Accu-Chek #100 ea 04/18/22 Guide test strips) Current Visit Medications: Current Medications Generic Name Dose Route Start Last Admin Trade Name Freq PRN Reason Stop Dose Admin Ringer's Solution 1,000 mls @ 80 mls/hr 05/11/22 06:00 IV 06/09/22 23:59 INFUSION ELIZABETH Cefazolin Sodium/Dextrose 2 gm in 50 mls @ 100 mls/hr 05/11/22 06:00 Ancef Duplex IVPB 06/09/22 23:59 PREOP ELIZABETH IV Miscellaneous Supplies 1 each 05/11/22 06:00 Iv Access IV 06/09/22 23:59 DIRECTED ELIZABETH Sodium Chloride 0 ml 05/11/22 06:00 Normal Saline Flush 10 Ml Syr IV 06/09/22 23:59 PRN PRN Sodium Chloride 0 ml 05/11/22 06:00 Normal Saline 10 Ml Vial IJ 06/09/22 23:59 DIRECTED PRN Sterile Water 0 ml 05/11/22 06:00 Water,Injection,Sterile 10 Ml Vial IJ 06/09/22 23:59 DIRECTED PRN PFSH Active Problems Active Problems: Problem Status Onset Code Diabetic retinopathy 09/04/12 E11.319 Hyperlipidemia 09/05/13 E78.5 Osteoarthritis of right knee M17.11 Positional vertigo Essential hypertension I10 Chondrocalcinosis M11.20 Effusion, right knee M25.461 Osteoarthritis of knee M17.10 Diabetes mellitus type 2, 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 POP; LEFT, jpt. reports both sides Hx of colonoscopy Hx of total knee arthroplasty R knee Tobacco Smoking/Tobacco Use Status: Never Passive smoking exposure: Yes Alcohol Alcohol Intake: current Alcohol intake frequency: a few times a month Alcohol type: beer Substance Use Substance use: Never Substance use type: does not use Vital Signs and Lab Results Lab Results Blood Type / Crossmatch: No Data to Display Complete Blood Count: No Data to Display Complete Metabolic Panel: No Data to Display Liver Function Panel: No Data to Display Coagulation Panel: No Data to Display Cardiac Panel: No Data to Display Arterial Blood Gas: No Data to Display Venous Blood Gas: No Data to Display Pancreas Panel: No Data to Display Thyroid Panel: No Data to Display Infectious Disease: No Data to Display Blood Cultures: No Data to Display Toxicology Panel: No Data to Display Imaging and Studies Imaging and Studies Study information below may be from another EMR and interpreted by another provider. Please see original notes in EMR for more complete details. EKG Summary: 06/08/20 Sinus rhythm...normal P axis, V-rate 60- 99 Anesthesia Assessment and Plan Anesthesia History Personal History: No History of Anesthesia Complications Family History: No Family History of Anesthesia Complications Exercise Tolerance Exercise Tolerance: Metabolic Equivalents>4 Implantable Cardiac Device Does patient have a Pacemaker or an ICD?: No Airway Exam Known Difficult Airway: No Mallampati Class: 2 Mouth Opening: Narrow (< 3cm) Thyromental Distance: Greater than 3 cm Neck Range of Motion: Full ROM Neck Circumference: Normal Teeth Condition: Other (Has lower front teeth only) ASA Classification ASA Score: ASA 3 Anesthesia Plan Resuscitation Status: Full Code Anesthesia Technique: MAC Anesthesia Airway Planned: Natural Airway Monitors Used: Standard Monitors Preoperative Comments:: Hx: HTN, gout DM2 poorly controlled HgA1C 11.6, HLD EK06/08/20 Sinus rhythm...normal P axis, V-rate 60- 99 Knee arthroscopy 07/28/21 LMA 3
[2022-05-11 09:30] VITALS: BP 162/73; PULSE 77; RESP 16; TEMP 36.4; O2SAT 97
--- NOTE | 2022-05-11 10:15 | RT.EKG_ITS ---
APPROVED REPORT Exam: Resting ECG Reason for Exam: Pre op reported recent chest pain Patient Location: O HR:75 bpm ECG Measurements Heart Rate 75 AXIS [place] 128 P 53 QRSd 86 QRS 7 QT 382 T 5 QTc 427 Conclusion Sinus rhythm...normal P axis, V-rate 60- 99 Normal Electrocardiogram
--- NOTE | 2022-05-11 10:31 | PDOC.ANES ---
Date of service: 05/11/22 Time of Service: 10:30 Anesthesia Note Report Anesthesia Note: Bradley was here today for an ECTR. On his being interviewed he mentioned that he recently has been getting chest pain that is closely timed with exertion. This chest pain/ache does go away with resting. Given that this chest discomfort is new and occurs in what sounds like close approximation to exertion his surgery was postponed. An EKG was obtained which shows no signs of current ischemia, and a message sent to his PCP. He was encouraged to call his PCP today. He was also instructed to present to the ED with an chest discomfort.
--- NOTE | 2022-05-11 10:37 | NUR.NOTE ---
During assessment the pt revealed that he had experienced chest pain/pressure 2 days ago after moving wood. Anesthesia provider notified and came to see pt. Surgery cancelled and 12 lead EKG done. Pt's PCP notified by anesthesia. Nursing Note:
== END 2022-05-11 09:29 | disposition home or self-care (01) ==
LOC: SUR 09:29
PROVIDERS: PCP Nurse Practitioner Family; Visit Provider Student in an Organized Health Care Education/Training Program
DX: G56.02 Carpal tunnel syndrome, left upper limb (principal); Z53.8 Procedure and treatment not carried out for other reasons; G56.22 Lesion of ulnar nerve, left upper limb
CPT/HCPCS: 93005; 93010; J1100; J2405; J2704

== ENCOUNTER 2022-05-16 00:54 | Outpatient (CLI) | payer MEDICARE, OTHER, SELFPAY ==
--- NOTE | 2022-05-16 08:00 | ETT_ITS ---
APPROVED REPORT Exam: Exercise Treadmill Patient Location: Out-Patient Room/Bed: Stress Nurse: Marcie Garcia RN Ordering Provider:CASTRO GAUTHIER, Contact Number: [phone] BMI: 26.57 Baseline Rhythm: Sinus Rhythm Comment: Occasional PVCs Indications: Chest pain Medical History Medical History: Hypertension, hyperlipidemia, diabetes type II, osteoarthritis, diabetic retinopathy Cardiac Medications: Aspirin, cinnamon, magnesium oxide, indomethacin, sildenafil, metformin, glipizi de, lovastatin, lisinopril Allergies: NKA Cardiac Risk Factors: Hypertension, hyperlipidemia, diabetes type II Previous Cardiac Procedures: None Pretest Chest Pain Characteristics: None Exercise History: Indeterminate Physical Disabilities: None Lung Sounds: Clear to auscultation Heart Sounds: Regular Stress Test Details Test: Exercise stress testing was performed using a Yo protocol. Rest Stress HR Resting HR Supine: 86 bpm Max Heart Rate (APMHR): 148 bpm Resting HR Standin bpm Target HR (85% APMHR): 126 bpm Max HR Achieved: 129 bpm % of APMHR: 87 Recovery HR: 83 bpm HR response to stress: Normal HR response to stress BP Resting BP Supine: 148/68 mmHg Resting BP Standin/74 mmHg Max BP: 208/80 mmHg Recovery BP: 150/72 mmHg BP response to stress: Normal blood pressure response to stress. ECG Resting ECG: Sinus Rhythm Ectopy: Occasional PVCs Stress ECG: Sinus Tachycardia ST Change: No significant ST segment changes noted Arrhythmia: Rare PACs, frequent multifocal PVCs Recovery ECG: Sinus Rhythm Recovery ST Change: No significant ST segment changes noted Recovery Arrhythmia: Occasional PACs, frequent multifocal PVCs, bigeminy, couplet Clinical Reason for Termination: Fatigue Stress Symptoms: General Fatigue Exercise duration: 4 min24 sec Highest Stage Reached: Stage 2: 2.5 mph at 12% grade. Exercise capacity: 6.29 METs Angina Score: None Marks Treadmill Score: 3.3 Rate Pressure Product: [id number] Stress ECG Conclusion 1. The resting electrocardiogram was within normal limits 2. Patient exercised on the Yo protocol and completed a workload of 6.29 METS, stopping due to fat igue 3. Normal heart rate and blood pressure response to exercise. Patient achieved 87% of predicted hear t rate for age 4. There was no electrocardiographic evidence of myocardial ischemia 5. Ventricular ectopy was noted Marks Treadmill Score is 3.3 which is Moderate risk. Stress Test Summary STAGE Time (mins) Speed (mph) Grade (%) HR BP SpO2 SYMPTOMS METS Supine 85 148/68 Standing 89 142/74 95% 1 3 1.7 10 119 158/68 95% 4.5 2 6 2.5 12 129 97% 7 1 min recovery 104 180/68 97% 3 min recovery 77 208/80 97% 6 min recovery 83 150/72 97%
== END 2022-05-16 01:14 ==
LOC: DI 00:54
PROVIDERS: PCP Nurse Practitioner Family; Visit Provider Nurse Practitioner Family
DX: R07.9 Chest pain, unspecified (principal)
CPT/HCPCS: 93016; 93018; 93017

== ENCOUNTER → 2022-06-16 07:59 | Outpatient (BNVA) | payer MEDICARE, OTHER, SELFPAY | PROVIDERS: PCP Nurse Practitioner Family; Referring Provider Nurse Practitioner Family; Visit Provider Physical Therapy Assistant | DX: Z12.11 Encounter for screening for malignant neoplasm of colon (principal) ==

== ENCOUNTER 2022-08-02 09:17 | Day surgery (SDC) | payer MEDICARE, OTHER, SELFPAY ==
[2022-08-02] VITALS (8 sets, daily range): BP systolic 101–167; BP diastolic 41–80; PULSE 63–79; RESP 10–18; TEMP 35.9–36.5; O2SAT 94–100; BMI 26.2
[2022-08-02] MEDS: Lactated Ringers 1,000 ML 80 ML IV (10:39)
[2022-08-02] MEDS: Normal Saline Flush 10 ML SYR IV (10:41)
--- NOTE | 2022-08-02 10:44 | W.ANESPRE ---
General Info Date of Service Date Performed: 08/02/22 Height: 6 ft Weight: 87.5 kg Body Mass Index (BMI): 26.2 Surgical Procedure: Operation Date: 08/02/22 11:25 Proposed Procedure Side Surgeon p Wrist ECTR Left Varghese Schwartz MD s Cubital Tunnel Release Left Varghese Schwartz MD Meds Allergies and Home Medications Allergies Allergy/AdvReac Type Severity Reaction Status Date / Time No Known Allergies Allergy Verified 08/02/22 09:39 Home Medication Medication Instructions Recorded cinnamon bark 500 mg capsule 1,000 mg PO DAILY 08/30/12 magnesium oxide 500 mg PO DAILY 01/06/14 triamcinolone acetonide 0.1 % 1 applic topical BID apply to 01/10/19 topical cream elbow #30 grams indomethacin 50 mg capsule 50 mg PO TID PRN gout #30 caps 01/10/20 blood-glucose meter #1 ea 02/05/20 acetaminophen 500 mg tablet 500 mg PO DIRECTED 07/27/21 (Tylenol Extra Strength) ibuprofen 600 mg tablet See Rx Instructions .Route 10/11/21 .COMPLEX #60 tabs blood sugar diagnostic #100 ea 04/08/22 glipizide 10 mg tablet 10 mg PO BID #180 tab-caps 04/08/22 lancets #100 ea 04/08/22 lovastatin 40 mg tablet 40 mg PO DAILY #90 tab-caps 04/08/22 blood sugar diagnostic (Accu-Chek #100 ea 04/18/22 Guide test strips) aspirin 81 mg tablet 81 mg PO DAILY 05/11/22 bisacodyl 5 mg tablet,delayed 5 mg PO ONCE #4 tabs 06/16/22 release (Dulcolax (bisacodyl)) lisinopril 40 mg tablet 40 mg PO DAILY #90 tabs 06/20/22 metformin 1,000 mg tablet 1,000 mg PO BID #180 tab-caps 06/20/22 semaglutide 0.25 mg or 0.5 mg (2 0.25 mg (0.4 mL) subcut QWEEK #3 mL 08/01/22 mg/3 mL) subcutaneous pen injector (Ozempic) Current Visit Medications: Current Medications Generic Name Dose Route Start Last Admin Trade Name Freq PRN Reason Stop Dose Admin Ringer's Solution 1,000 mls @ 80 mls/hr 08/02/22 06:00 08/02/22 10:39 IV 08/31/22 23:59 80 mls/hr INFUSION ELIZABETH Administration Cefazolin Sodium/Dextrose 2 gm in 50 mls @ 100 mls/hr 08/02/22 06:00 Ancef Duplex IVPB 08/02/22 16:00 PREOP ELIZABETH IV Miscellaneous Supplies 1 each 08/02/22 06:00 Iv Access IV 08/31/22 23:59 DIRECTED ELIZABETH Sodium Chloride 0 ml 08/02/22 06:00 08/02/22 10:41 Normal Saline Flush 10 Ml Syr IV 08/31/22 23:59 10 ml PRN PRN Administration Sodium Chloride 0 ml 08/02/22 06:00 Normal Saline 10 Ml Vial IJ 08/31/22 23:59 DIRECTED PRN Sterile Water 0 ml 08/02/22 06:00 Water,Injection,Sterile 10 Ml Vial IJ 08/31/22 23:59 DIRECTED PRN PFSH Active Problems Active Problems: Problem Status Onset Code Screening for colon cancer Z12.11 Diabetic retinopathy 09/04/12 E11.319 Hyperlipidemia 09/05/13 E78.5 Osteoarthritis of right knee M17.11 Positional vertigo Essential hypertension I10 Chondrocalcinosis M11.20 Effusion, right knee M25.461 Osteoarthritis of knee M17.10 Diabetes mellitus type 2, 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 POP; LEFT, jpt. reports both sides Hx of colonoscopy Hx of total knee arthroplasty R knee Tobacco Smoking/Tobacco Use Status: Never Passive smoking exposure: Yes Alcohol Alcohol Intake: current Alcohol intake frequency: a few times a month Alcohol type: beer Substance Use Substance use: Never Substance use type: does not use Vital Signs and Lab Results Vital Signs Most Recent Vital Signs in EMR: Most Recent Vital Signs Temp Pulse Resp BP Pulse Ox 36.4 C L 79 17 167/80 H 99 08/02/22 09:20 08/02/22 09:20 08/02/22 09:20 08/02/22 09:20 08/02/22 09:20 Lab Results Blood Type / Crossmatch: No Data to Display Complete Blood Count: No Data to Display Complete Metabolic Panel: No Data to Display Liver Function Panel: No Data to Display Coagulation Panel: No Data to Display Cardiac Panel: No Data to Display Arterial Blood Gas: No Data to Display Venous Blood Gas: No Data to Display Pancreas Panel: No Data to Display Thyroid Panel: No Data to Display Infectious Disease: No Data to Display Blood Cultures: No Data to Display Toxicology Panel: No Data to Display Imaging and Studies Imaging and Studies Study information below may be from another EMR and interpreted by another provider. Please see original notes in EMR for more complete details. EKG Summary: DATE/TIME OF SERVICE: 06/08/20826 : 1950PERFORMING LOCATION: [facility] Exam: Resting ECG Patient Location: O HR:85 bpm ECG Measurements Heart Rate 85 AXIS [place] 121 P 64 QRSd 92 QRS 17 QT 367 T7 QTc 436 Conclusion Sinus rhythm...normal P axis, V-rate 60- 99 Anesthesia Assessment and Plan Anesthesia History Personal History: No History of Anesthesia Complications Family History: No Family History of Anesthesia Complications Exercise Tolerance Exercise Tolerance: Metabolic Equivalents>4 Pertinent Negatives Pertinent Negatives: No Symptoms of GERD, No Major Cardiovascular Symptoms or Complaints, No Major Pulmonary Symptoms or Complaints and No History of CVA/TIA Cardiac & Pulmonary Exam Cardiac Exam: Normal S1/S2 Heart Sounds Pulmonary Exam: Clear Bilateral Breath Sounds Implantable Cardiac Device Does patient have a Pacemaker or an ICD?: No Airway Exam Known Difficult Airway: No Mallampati Class: 2 Mouth Opening: Narrow (< 3cm) Thyromental Distance: Greater than 3 cm Neck Range of Motion: Full ROM Neck Circumference: Normal Teeth Condition: Generalized Poor Dentition and Other (Has lower front teeth only) ASA Classification ASA Score: ASA 2 Emergency Case?: No NPO Status NPO Status: NPO Clears >2 hours, Solids >8 hours and Full Stomach (Considered full stomach secondary to medication usage: Ozempic, planned RSI) Anesthesia Plan Resuscitation Status: Full Code Anesthesia Technique: General Anesthesia Airway Planned: Endotracheal Tube Monitors Used: Standard Monitors
--- NOTE | 2022-08-02 11:04 | HPE_ITS ---
Assessment and Plan Assessment and plan (1) Cubital tunnel syndrome, bilateral: Status: Acute (2) Bilateral carpal tunnel syndrome: Status: Acute Assessment and plan: Bradley is a 71-year-old diabetic who has bilateral carpal tunnel and cubital tunnel syndrome. His left side is most problematic. He continues have numbness and tingling and weakness. Please see the previous office note for complete detailed history. However, given the severity of the symptoms I do recommend proceeding with carpal tunnel and cubital tunnel release. I was very cautious about his prognosis given his uncontrolled diabetes although he is working with his primary to address this more diligently. Nevertheless, it is imperative to hopefully stop any progression of the disease process and preserve function. I reviewed the carpal tunnel and cubital tunnel release with him. I discussed the risk to include bleeding, infection, pain, stiffness, nerve subluxation, scarring or inflammation around the nerve, need for repeat procedures, damage to the nerve or adjacent nerves and arteries and vessels. It is also likely that he will have some residual numbness. Will take some time for it to improve completely. After discussing this and addressing his questions, he elects to proceed. History of Present Illness History of Present Illness Chief Complaint: Left Hand Numbness Narrative: Bradley is a 71-year-old diabetic who have seen previously for left hand numbness and weakness. He has diagnosed cubital tunnel and carpal tunnel syndrome. He is here today for cubital tunnel release and carpal tunnel release. He denies any new symptoms. He denies any changes to his health. He has had no recent chest pain or shortness of breath. He has had worsening diabetes control however, he is making multiple changes to his medications as we speak with his primary care provider. Review of Systems All systems reviewed & are unremarkable except as noted in HPI and below PFSH All Active Problems Screening for colon cancer (Acute) Diabetic retinopathy (Acute 09/04/12) Hyperlipidemia (Acute 09/05/13) Osteoarthritis of right knee (Acute) Positional vertigo (Acute) Essential hypertension (Acute) Chondrocalcinosis (Acute) knees Effusion, right knee (Acute) Osteoarthritis of knee (Acute) Diabetes mellitus type 2, insulin dependent (Acute) Bunion (Acute) Onychomycosis (Acute) Actinic keratosis (Acute) Erectile dysfunction (Acute) Onychogryphosis (Acute) Callus of foot (Acute) History of total right knee replacement (Acute) Painful total knee replacement, right (Acute) Fibrosis of right knee joint (Acute) s/p arthroscopy and synovectomy of right TKA DOS: 07/27/21 Numbness of left hand (Acute) Bilateral carpal tunnel syndrome (Acute) Cubital tunnel syndrome, bilateral (Acute) Medical History Hx of essential hypertension Hx of gout Hx of type 2 diabetes mellitus Hx of vertigo Surgical History Extraction of cataract 04/29/14; DR. POP; LEFT, jpt. reports both sides Hx of colonoscopy Hx of total knee arthroplasty R knee Family History Mother , 80 Cancer Father , at 24 of blood poisoning No problems noted. Sister No problems noted. Brother No problems noted. Maternal Grandfather , 75 Heart disease Paternal Grandfather No problems noted. Maternal Grandmother No problems noted. Paternal Grandfather No problems noted. Son No problems noted. Son No problems noted. Son No problems noted. Daughter No problems noted. Social History Smoking/Tobacco Use Status: Never Smoking risk assessment performed?: Yes Alcohol Intake: current Alcohol Intake frequency: a few times a month Alcohol type: beer Drug use: Never Substance use type: does not use Caregiver/Support person: No Household members: none Housing: house Communication Needs: None Pets and animals: Yes Pets and animals: dog(s) Sexually active: No Do you think of yourself as: straight/heterosexual Current gender identity: male What is your relationship status?: How often do you talk on the phone with friends or family?: three or more times per week How often do you get together with friends or relatives?: twice per week How often do you attend muslim or restorationist services?: decline to answer Do you belong to any clubs or organized social groups?: no Panel score (0-1 are the most socially isolated patients): 1 What type of physical activity do you participate in: other Details: Bowling and decline to answer Duration: 15-30 minutes/day Frequency: 1-2 times per week Bekah/Scientology: None Special bekah needs: No Seatbelt use: always Helmet use: Yes Helmet use: sometimes Drive intox or ride w/intox flag car driver: No Do you feel safe at home: Yes Do you feel safe in your relationship?: Yes Meds Allergies and Home Medications Allergies Allergy/AdvReac Type Severity Reaction Status Date / Time No Known Allergies Allergy Verified 08/02/22 09:39 Home Medications Medication Instructions Recorded Confirmed Type cinnamon bark 500 mg capsule 1,000 mg PO DAILY 08/30/12 08/02/22 History magnesium oxide 500 mg PO DAILY 01/06/14 08/02/22 History triamcinolone acetonide 0.1 % 1 applic topical BID apply to 01/10/19 08/02/22 Rx topical cream elbow #30 grams indomethacin 50 mg capsule 50 mg PO TID PRN gout #30 caps 01/10/20 08/02/22 Rx blood-glucose meter #1 ea 02/05/20 08/01/22 Rx acetaminophen 500 mg tablet 500 mg PO DIRECTED 07/27/21 08/02/22 History (Tylenol Extra Strength) ibuprofen 600 mg tablet See Rx Instructions .Route 10/11/21 08/01/22 Rx .COMPLEX #60 tabs blood sugar diagnostic #100 ea 04/08/22 08/01/22 Rx glipizide 10 mg tablet 10 mg PO BID #180 tab-caps 04/08/22 08/02/22 Rx lancets #100 ea 04/08/22 08/01/22 Rx lovastatin 40 mg tablet 40 mg PO DAILY #90 tab-caps 04/08/22 08/02/22 Rx blood sugar diagnostic (Accu-Chek #100 ea 04/18/22 08/01/22 Rx Guide test strips) aspirin 81 mg tablet 81 mg PO DAILY 05/11/22 08/02/22 History bisacodyl 5 mg tablet,delayed 5 mg PO ONCE #4 tabs 06/16/22 08/01/22 Rx release (Dulcolax (bisacodyl)) lisinopril 40 mg tablet 40 mg PO DAILY #90 tabs 06/20/22 08/02/22 Rx metformin 1,000 mg tablet 1,000 mg PO BID #180 tab-caps 06/20/22 08/02/22 Rx semaglutide 0.25 mg or 0.5 mg (2 0.25 mg (0.4 mL) subcut QWEEK #3 mL 08/01/22 08/01/22 Rx mg/3 mL) subcutaneous pen injector (Ozempic) Exam Resp Effort & Inspection: normal respiratory effort Auscultation: clear to auscultation bilaterally Cardio Rate: regular rate Rhythm: regular rhythm Results Last Vital Signs Temp 36.4 C L 08/02/22 09:20 Pulse 79 08/02/22 09:20 Resp 17 08/02/22 09:20 BP 167/80 H 08/02/22 09:20 Pulse Ox 99 08/02/22 09:20
--- NOTE | 2022-08-02 11:14 | PDOC.DSDIS_ITS ---
Date of service: 08/02/22 Time of Service: 11:15 Discharge Plan Disposition Patient Disposition: Home Condition: Good Discharge Details Reason For Visit: Left Carpal Tunnel and Cubital Tunnel Syndrome Attending Provider: Varghese Schwartz Primary Care Provider: Laron Prado Home Meds and New Rx's Prescriptions: New hydrocodone-acetaminophen 5-325 mg tablet 1 tab PO Q6H PRN (Reason: pain) Qty: 8 0RF acetaminophen 500 mg tablet 500 mg PO Q6H PRN PRN (Reason: pain) Qty: 40 3RF ibuprofen 600 mg tablet 600 mg PO TID PRN (Reason: pain) Qty: 60 3RF Continued triamcinolone acetonide 0.1 % cream 1 applic TP BID Qty: 30 2RF metformin 1,000 mg tablet 1,000 mg PO BID Qty: 180 1RF lisinopril 40 mg tablet 40 mg PO DAILY Qty: 90 3RF bisacodyl [Dulcolax (bisacodyl)] 5 mg tablet,delayed release (DR/EC) 5 mg PO ONCE Qty: 4 0RF Rx Instructions: Take according to provider's instructions for colonoscopy prep. Ozempic 0.25 mg or 0.5 mg (2 mg/3 mL) pen injector 0.25 mg subcut QWEEK Qty: 3 0RF Rx Instructions: for 4 weeks cinnamon bark 500 MG capsule 1,000 mg PO DAILY magnesium oxide 250 MG tablet 500 mg PO DAILY (DME) blood-glucose meter Kit See Rx Instructions .ROUTE .MEDSUPPLY Qty: 1 0RF Patient Comments: pt. reports he last tested last monday, states he only tests it occasionally Rx Instructions: As directed (DME) blood sugar diagnostic Strip See Rx Instructions .ROUTE .MEDSUPPLY Qty: 100 3RF Rx Instructions: bid glipizide 10 mg tablet 10 mg PO BID Qty: 180 1RF (DME) lancets Misc See Rx Instructions .ROUTE .MEDSUPPLY Qty: 100 3RF Rx Instructions: Twice daily lovastatin 40 mg tablet 40 mg PO DAILY Qty: 90 4RF (DME) Accu-Chek Guide test strips Strip See Rx Instructions .Route Qty: 100 3RF Rx Instructions: Daily aspirin 81 mg Tablet 81 mg PO DAILY Discontinued indomethacin 50 mg capsule 50 mg PO TID PRN (Reason: gout) Qty: 30 0RF Rx Instructions: administer with food or milk ibuprofen 600 mg tablet See Rx Instructions .ROUTE .COMPLEX Qty: 60 3RF Dose Instruction: TAKE ONE TABLET BY MOUTH THREE TIMES A DAY NEEDED FOR PAIN Rx Instructions: TAKE ONE TABLET BY MOUTH THREE TIMES A DAY NEEDED FOR PAIN acetaminophen [Tylenol Extra Strength] 500 mg Tablet 500 mg PO DIRECTED Patient Comments: pt. reports taking 3 when he takes them Discharge Instructions Additional Instructions: Carpal and Cubital Tunnel Decompression Discharge Instructions Activity: You should stay in the sling for the first 2 weeks. You may come out of the sling for gentle motion and hygiene but should largely remain in the sling to allow the incision site to heal. Gentle motion of the elbow, hand, wrist, and fingers is okay and encouraged after the first few days, but no repetitive activites nor heavy lifting. You may apply ice. Medications: - You should take Tylenol and Ibuprofen around the clock. - You have been prescribed Hydrocodone for breakthrough pain. Dressings: - The initial surgical dressing should stay in place for 2-3 days. The elbow dressing may stay in place until your follow-up or changed at 3 days. The wrist wound may be covered with a bandaid and the elbow should be kept covered with a light gauze dressing or large band-aids. - You may shower after 3 days and get the wound wet. Follow-up: 10 days Stand Alone Forms: Anesthesia Discharge Inst., Danii Garcia (U) Referrals: Varghese Schwartz MD [ [facility] STAFF PHYSICIAN] - 08/11/22 10:15 am Equipment/Supplies: Sling Activity:: Elevate Remove Dressings/Wound Care:: 72 hours Shower/Bathe:: 72 hours Diet:: As Tolerated Discharge Orders Discharge Orders: Discharge Order (Routine); Ordered 08/02/22 Ordered By: Varghese Schwartz DS: Diagnosis Discharge Diagnosis (1) Cubital tunnel syndrome, bilateral: Status: Acute (2) Bilateral carpal tunnel syndrome: Status: Acute
[2022-08-02] MEDS: ceFAZolin 2 GM/50 ML BAG IVPB (11:24)
--- NOTE | 2022-08-02 14:18 | W.ANESPOSTOP ---
Postoperative Evaluation Date, Time and Location Date Performed: 08/02/22 Time Performed: 14:18 Patient Location: Day Surgery Unit Vital Signs Most Recent Imported Vital Signs: Most Recent Vital Signs Temp Pulse Resp BP Pulse Ox 36.2 C L 70 16 152/76 H 98 08/02/22 13:48 08/02/22 13:48 08/02/22 13:48 08/02/22 13:48 08/02/22 13:48 Pain Score Most Recent Pain Score: Most Recent Pain Score Pain Level 0 08/02/22 13:48 Assessment Mental Status: Awake (Alert & Oriented to Patient Baseline) Airway and Respiratory Function: Patent airway with normal (patient baseline) respiratory exam Cardiovascular Function: Hemodynamically Stable Hydration Status: Adequately Hydrated Nausea & Vomiting: No Nausea or Vomiting Pain: Pt. Denies Any Pain Peripheral Nerve Block: Patient did not receive a nerve block
--- NOTE | 2022-08-02 17:58 | ROE_ITS ---
Date of service: 08/02/22 Time of Service: 12:00 Operative Note Operative Note DATE OF PROCEDURE: 08/02/22 PRE-OP DIAGNOSIS: Left Carpal Tunnel and Left Cubital Tunnel Syndrome POST-OP DIAGNOSIS: same PROCEDURE: Left Endoscopic Carpal Tunnel Release and Left Cubital Tunnel Decompression with Anterior Subcutaneous Transposition SURGEON: Varghese Schwartz WELCOME [employer]ON HOST/HOSTESS: Renny Mcgill ANESTHESIA TYPE: General LMA/ETT Refer to Anesthesia Record ESTIMATED BLOOD LOSS: 0 PATHOLOGY: none sent TOURNIQUET TIME: 24 COMPLICATIONS: None Patient was transported to: PACU Patient's condition: stable Indications: Bradley is a 71 year old male who has had symptoms of carpal and cubital tunnel syndrome. Nonoperative treatment options had been trialed. Nerve conduction studies identified the carpal and cubital tunnel as the point of compression. Given failure of nonoperative treatments and persistent symptoms, I offered operative intervention. I reviewed the technical details of a carpal tunnel release and cubital tunnel decompression with possible anterior subcutaneous transposition. I reviewed the risk of the procedure to include bleeding, infection, pain, stiffness, nerve instability, damage to superficial nerves, persistent symptoms, and incomplete release. Despite these risks, the patient elected to proceed. Findings: The carpal tunnel was release with a standard endoscopic technique without difficulty and excellent visualization. There was a tightened cubital tunnel. The ulnar nerve was release from the first motor branch distally through the [place] proximally. The nerve was unstable after decompression and thus an anterior subcutaneous transposition was performed. Procedure Description: Bradley was greeted in the preoperative holding area where the correct side was i dentified and marked. The consent was reviewed with the patient and signed. The history and physical was updated. All questions were answered. He was taken back to the operating room. The patient was placed into the supine position on the operating room table with the left arm on an arm board. A nonsterile tourniquet was placed high onto the arm, into the axilla. All bony prominences were well padded. Prophylactic antibiotics in the form of Cefazolin were administered. The right arm was then prepped with Chloraprep and draped in a standard fashion with stockinette and extremity drape. A timeout to confirm correct identity, side and site, procedure, allergies, anesthesia, and medical concerns was performed. The surgical site was marked in the volar wrist creases in line with the radial border of the fourth ray. This area was anesthetized with approximately 6cc of 1% Lidocaine with Epinephrine. The surgical site about the medial elbow was drawn on the skin just posterior to the medial epicondyle borders. The planned surgical field was anesthetized with 1% Lidocaine with Epinephrine. The limb was then exsanguinated with an Esmarch. Starting with the carpal tunnel, the skin was incised with a 15 blade, approximately 1cm. The skin only was cut and the deeper tissue was dissected bluntly with a tenotomy scissor, avoiding passing nerve and venous structures. The fascia was penetrated and opened bluntly. A two-prong skin hook was placed under this proximal fascial edge. A series of hamate finders were used to identify and dilate the carpal tunnel. Synovial elevator was used to free synovial attachments to the underside of the transverse carpal ligament. My thumb was kept in the palm to nathalie the distal extent of the carpal tunnel and correctly position the hand. The [employer]aire endoscope was inserted without difficulty and without resistance. Excellent visualization showed horizontally running fibers of the transverse carpal ligament (TCL). The distal extent of the TCL was visualized and the end of the scope palpated with the thumb. The blade was elevated and withdrawn from distal to proximal. The TCL was split into two flaps. The endoscope was reinserted to confirm complete release and any remnant ligament was incised. The scope was withdrawn and the proximal aspect of the carpal tunnel was grossly inspected and appeared release with the median nerve visible. The antebrachial fascia at the level of the wrist was then freed from the overlying skin and then the underlying median nerve with blunt dissection. This was transected longitudinally for about 3cm proximal to the wrist incision. The wound was then irrigated with easy flow of irrigant distally and proximally. The incision was closed with a single 4-0 Nylon suture. . Attention was then turned to the cubital tunnel release. The skin of the medial elbow was incised only with the elbow in some flexion and on a bump. The deep tissue and subcutaneous fat was dissected with a tenotomy scissors trying to protect any branches of the medial antebrachial cutaneous nerve. Any branches that were identified were retracted out of the way. The ulnar nerve was palpated and identified. A small window into the cubital tunnel, sheath overlying the nerve, was created and the nerve was able to be palpated with the [place]. A Metzenbaum scissor was then used to open up the sheath starting with Loya's ligament. I then worked distal over the ulnar nerve releasing any constraints against the nerve all the way to the fascia of the FCU muscle belly. This muscle belly was bluntly all the way down to the first motor branch of the ulnar nerve and the overlying fascia was incised. Likewise starting there at the medial epicondyle, I proceeded to work proximally to release any constraints over the ulnar nerve. This was taken all the way to the arc[place] of [place]. The medial intermuscular septum was also palpated and any sharp edges against the ulnar nerve were resected and released. After fully releasing the nerve it was inspected visually. I was also able to palpate the nerve fully and reach one finger up into the proximal and distal aspects to make sure there were no constraints against the nerve. A freer elevator was also used to slide easily against the ulnar nerve without any points of constriction. The arm was then taken through range of motion. The ulnar nerve did sublux/dislocate out of its groove behind the lateral epicondyle. Given this instability of the nerve and anterior subcutaneous transposition was performed. Tissue was cleared from the anterior border of the medial epicondyle. Attachments to the deep side of the ulnar nerve were released and the ulnar nerve is able to be moved anteriorly. The flexor carpi ulnaris fascia was inspected to make sure it was not impinging on the nerve all of the muscle was against the nerve. The intermuscular septum was further released to allow unimpeded resting of the nerve anteriorly. Once this was freed up completely and a flap of fascia from the flexor pronator origin of the medial epicondyle was raised, based medially. The nerve was moved anteriorly and this flap was secured to the deep dermal tissue overlying it. This was inspected and showed no compression of the nerve. A [place] was easily passed along the nerve against the sling without any attachments or adhesions. The tourniquet was then deflated. Any areas of bleeding were cauterized with bipolar electrocautery. The wound was thoroughly irrigated. The deep tissue was closed with a 3-0 Vicryl. The skin was closed with a 4-0 nylon. The wounds were dressed with Xeroform, 4 x 4's, ABD, Kerlix and an Sam wrap. Bradley was placed into a sling. Bradley was transferred back to the PACU in a stable condition.
== END 2022-08-02 14:35 | disposition home or self-care (01) ==
PROVIDERS: PCP Nurse Practitioner Family; Visit Provider Student in an Organized Health Care Education/Training Program
PROC: 01N54ZZ Release Median Nerve, Percutaneous Endoscopic Approach (ICD-10-PCS; CPT 29848; principal; 2022-08-02 11:15)
DX: G56.03 Carpal tunnel syndrome, bilateral upper limbs (principal); G56.23 Lesion of ulnar nerve, bilateral upper limbs; E11.9 Type 2 diabetes mellitus without complications
CPT/HCPCS: 29848; J0690; J1100; J2405; J2704

== ENCOUNTER → 2022-08-11 10:12 | Outpatient (BNVA) | payer MEDICARE, OTHER, SELFPAY | PROVIDERS: PCP Nurse Practitioner Family; Referring Provider Nurse Practitioner Family | DX: Z47.89 Encounter for other orthopedic aftercare (principal); G56.02 Carpal tunnel syndrome, left upper limb; G56.22 Lesion of ulnar nerve, left upper limb ==

== ENCOUNTER → 2022-09-09 10:41 | Outpatient (BNVA) | payer MEDICARE, OTHER, SELFPAY | PROVIDERS: PCP Nurse Practitioner Family; Referring Provider Nurse Practitioner Family; Visit Provider Physician Assistant | DX: Z47.89 Encounter for other orthopedic aftercare (principal); R20.0 Anesthesia of skin ==

== ENCOUNTER 2022-11-10 07:52 | Outpatient (CLI) | payer MEDICARE, OTHER, SELFPAY ==
[2022-11-10 12:31] LABS: CREATININE 1.2 mg/dL (0.70-1.30); Estimated GFR 64.25 (mL/min/1.73m2)
== END 2022-11-10 07:53 | disposition home or self-care (01) ==
LOC: LOS 09:06
PROVIDERS: PCP Nurse Practitioner Family; Visit Provider Nurse Practitioner Family
DX: I10 Essential (primary) hypertension (principal)
CPT/HCPCS: 36415; 82565; 84132

== ENCOUNTER 2022-12-29 16:54 | Emergency (ER) | payer MEDICARE, OTHER, SELFPAY ==
[2022-12-29] VITALS (23 sets, daily range): BP systolic 136–177; BP diastolic 56–107; PULSE 82–171; RESP 14–25; TEMP 36.8; O2SAT 94–100
--- NOTE | 2022-12-29 16:45 | RT.EKG_ITS ---
APPROVED REPORT Exam: Resting ECG Reason for Exam: chest pain Patient Location: E HR:168 bpm ECG Measurements Heart Rate 168 AXIS NV 100 P -71 QRSd 82 QRS 26 QT 297 T 122 QTc 498 Conclusion Supraventricular tachycardia...V-rate>(220-age), QRSd<120 Repolarization abnormality, prob rate related...ST dep, T neg, tachycardia SVT with rate related ST segment depressions
--- NOTE | 2022-12-29 17:15 | RT.EKG_ITS ---
APPROVED REPORT Exam: Resting ECG Reason for Exam: chest pain Patient Location: E HR:97 bpm ECG Measurements Heart Rate 97 AXIS MD 132 P 52 QRSd 78 QRS 13 QT 284 T 241 QTc 361 Conclusion Sinus rhythm...normal P axis, V-rate 60- 99 Posterior infarct, old...prom R T, V1-V3 or Q >40mS, V7-V9 sinus rhtyhm, normal axis, normal intervals
--- NOTE | 2022-12-29 17:18 | W.ED.GENAD ---
Discharge Plan Disposition Patient Disposition: Home Condition: Improving Discharge Details Chief Complaint: Chest Pain Clinical Impression: SVT (supraventricular tachycardia) Primary Care Provider: Laron Prado ED Provider: Devin Champion Home Meds and New Rx's Prescriptions: No Action triamcinolone acetonide 0.1 % cream 1 applic TP BID Qty: 30 2RF lisinopril 40 mg tablet 40 mg PO DAILY Qty: 90 3RF bisacodyl [Dulcolax (bisacodyl)] 5 mg tablet,delayed release (DR/EC) 5 mg PO ONCE Qty: 4 0RF Rx Instructions: Take according to provider's instructions for colonoscopy prep. lovastatin 40 mg tablet 40 mg PO DAILY Qty: 90 4RF metformin 1,000 mg tablet 1,000 mg PO BID Qty: 180 1RF cinnamon bark 500 MG capsule 1,000 mg PO DAILY magnesium oxide 250 MG tablet 500 mg PO DAILY (DME) blood-glucose meter Kit See Rx Instructions .ROUTE .MEDSUPPLY Qty: 1 0RF Patient Comments: pt. reports he last tested last monday, states he only tests it occasionally Rx Instructions: As directed (DME) blood sugar diagnostic Strip See Rx Instructions .ROUTE .MEDSUPPLY Qty: 100 3RF Rx Instructions: bid (DME) lancets Misc See Rx Instructions .ROUTE .MEDSUPPLY Qty: 100 3RF Rx Instructions: Twice daily (DME) Accu-Chek Guide test strips Strip See Rx Instructions .Route Qty: 100 3RF Rx Instructions: Daily glipizide 10 mg tablet 10 mg PO BID Qty: 180 3RF aspirin 81 mg Tablet 81 mg PO DAILY acetaminophen 500 mg tablet 500 mg PO Q6H PRN PRN (Reason: pain) Qty: 40 3RF ibuprofen 600 mg tablet 600 mg PO TID PRN (Reason: pain) Qty: 60 3RF Discharge Instructions Instructions: Supraventricular Tachycardia (ED) Additional Instructions: Please follow-up with your primary care physician and cardiology. Please return to the emergency department for any worsening symptom Medical Decision Making 72-year-old male history of diabetes hyperlipidemia presents with rapid heart rate, palpitations, chest discomfort, that began within the last couple of hours in the setting of chopping wood and working outside in the heat today; no history of coronary disease, or thromboembolic disease. Patient showing narrow complex regular tachycardia with a rate in the 170s regular, hemodynamically stable alert oriented nontoxic. History physical and EKG consistent with supraventricular tachycardia. Have attempted modified vagal maneuver at bedside x2. This did not work. Will trial adenosine 6 mg IV. 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 IV is in place with IV fluids running. Consider electrolyte derangement versus dehydration lower suspicion for ACS PE or aortic pathology. 17: 31 adenosine 6 mg IV has converted patient to normal sinus rhythm. Patient hemodynamically stable alert oriented. We will follow-up with electrolytes, will continue with IV fluids. Likely home with close follow-up. 18: 37 rate controlled sinus rhythm chest pain-free no respiratory symptoms, patient follow-up with his primary care physician. Will be given cardiology referral. Home care instructions and return precautions HPI General Date/Time Provider Initiated Documentation: 12/29/22 17:02. HPI Narrative: 72-year-old male history of diabetes, hyperlipidemia presents with rapid heart rate and chest pressure in the setting of chopping wood out in the heat all day, history of prior event in the past that resolved after he took some baking soda and belched, no history of coronary artery disease or thromboembolic disease. Denies trouble breathing diaphoresis nausea vomiting or presyncope Related Data Home Medications Medication Instructions Recorded Confirmed cinnamon bark 500 mg capsule 1,000 mg PO DAILY 08/30/12 12/23/22 magnesium oxide 500 mg PO DAILY 01/06/14 12/23/22 triamcinolone acetonide 0.1 % 1 applic topical BID apply to 01/10/19 12/23/22 topical cream elbow #30 grams blood-glucose meter #1 ea 02/05/20 12/23/22 blood sugar diagnostic #100 ea 04/08/22 12/23/22 lancets #100 ea 04/08/22 12/23/22 blood sugar diagnostic (Accu-Chek #100 ea 04/18/22 12/23/22 Guide test strips) aspirin 81 mg tablet 81 mg PO DAILY 05/11/22 12/23/22 bisacodyl 5 mg tablet,delayed 5 mg PO ONCE #4 tabs 06/16/22 12/23/22 release (Dulcolax (bisacodyl)) lisinopril 40 mg tablet 40 mg PO DAILY #90 tabs 06/20/22 12/23/22 acetaminophen 500 mg tablet 500 mg PO Q6H PRN PRN pain #40 tabs 08/02/22 12/23/22 ibuprofen 600 mg tablet 600 mg PO TID PRN pain #60 tabs 08/02/22 12/23/22 metformin 1,000 mg tablet 1,000 mg PO BID #180 tab-caps 09/14/22 12/23/22 lovastatin 40 mg tablet 40 mg PO DAILY #90 tab-caps 09/22/22 12/23/22 glipizide 10 mg tablet 10 mg PO BID #180 tab-caps 10/05/22 12/23/22 Previous Rx's Medication Instructions Recorded triamcinolone acetonide 0.1 % 1 applic topical BID apply to 01/10/19 topical cream elbow #30 grams blood-glucose meter #1 ea 02/05/20 blood sugar diagnostic #100 ea 04/08/22 lancets #100 ea 04/08/22 blood sugar diagnostic (Accu-Chek #100 ea 04/18/22 Guide test strips) bisacodyl 5 mg tablet,delayed 5 mg PO ONCE #4 tabs 06/16/22 release (Dulcolax (bisacodyl)) lisinopril 40 mg tablet 40 mg PO DAILY #90 tabs 06/20/22 acetaminophen 500 mg tablet 500 mg PO Q6H PRN PRN pain #40 tabs 08/02/22 ibuprofen 600 mg tablet 600 mg PO TID PRN pain #60 tabs 08/02/22 metformin 1,000 mg tablet 1,000 mg PO BID #180 tab-caps 09/14/22 lovastatin 40 mg tablet 40 mg PO DAILY #90 tab-caps 09/22/22 glipizide 10 mg tablet 10 mg PO BID #180 tab-caps 10/05/22 Allergies Allergy/AdvReac Type Severity Reaction Status Date / Time No Known Allergies Allergy Verified 12/23/22 08:08 General Stated Complaint: Chest Pain ARI: 2 Review of Systems Narrative: Review of Systems Constitutional: negative Eyes: negative ENT: negative Cardiovascular: Palpitations, tachycardia, chest pain Respiratory: negative Gastrointestinal: negative : negative Musculoskeletal: negative Skin: negative Neurologic: negative Psych: negative PFSH All Active Problems SVT (supraventricular tachycardia) (Chronic) Callus (Acute) Screening for colon cancer (Acute) Diabetic retinopathy (Acute 09/04/12) Hyperlipidemia (Acute 09/05/13) Osteoarthritis of right knee (Acute) Positional vertigo (Acute) Essential hypertension (Acute) Chondrocalcinosis (Acute) knees Effusion, right knee (Acute) Osteoarthritis of knee (Acute) Diabetes mellitus type 2, insulin dependent (Acute) Bunion (Acute) Actinic keratosis (Acute) Erectile dysfunction (Acute) Callus of foot (Acute) History of total right knee replacement (Acute) Painful total knee replacement, right (Acute) Fibrosis of right knee joint (Acute) s/p arthroscopy and synovectomy of right TKA DOS: 07/27/21 Numbness of left hand (Acute) Bilateral carpal tunnel syndrome (Acute) s/p Left ECTR on 08/02/22 Cubital tunnel syndrome, bilateral (Acute) s/p Left cubital tunnel release on 08/02/22 Medical History Hx of essential hypertension Hx of gout Hx of type 2 diabetes mellitus Hx of vertigo Surgical History Extraction of cataract 04/29/14; DR. POP; LEFT, jpt. reports both sides Hx of colonoscopy Hx of total knee arthroplasty R knee Family History Mother , 80 Cancer Father , at 24 of blood poisoning No problems noted. Sister No problems noted. Brother No problems noted. Maternal Grandfather , 75 Heart disease Paternal Grandfather No problems noted. Maternal Grandmother No problems noted. Paternal Grandfather No problems noted. Son No problems noted. Son No problems noted. Son No problems noted. Daughter No problems noted. Social History (Updated 09/27/22 @ 10:09 by Courtney Snyder) Smoking/Tobacco Use Status: Never Second Hand Exposure: Yes Smoking risk assessment performed?: Yes Alcohol Intake: current Alcohol Intake frequency: a few times a week Alcohol type: beer Drug use: Never Substance use type: does not use Caregiver/Support person: No Household members: family Housing: house Communication Needs: None Do you need help understanding health information?: Often Pets and animals: Yes Pets and animals: dog(s) Sexually active: No Do you think of yourself as: straight/heterosexual Current gender identity: male What is your relationship status?: How often do you talk on the phone with friends or family?: three or more times per week How often do you get together with friends or relatives?: three or more times per week How often do you attend hindu or protestant services?: decline to answer Do you belong to any clubs or organized social groups?: yes Panel score (0-1 are the most socially isolated patients): 2 What type of physical activity do you participate in: other Details: Bowling Duration: 15-30 minutes/day Frequency: 1-2 times per week Bekah/Rastafarian: None Special bekah needs: No Seatbelt use: always 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 Do you feel safe at home: Yes Do you feel safe in your relationship?: Yes Exam Narrative Exam Narrative: Physical Examination General: alert, awake, cooperative, resting comfortably, no acute distress HEENT: normocephalic, atraumatic; PERRL, EOM intact, conjunctiva normal; no nasal discharge; moist mucous membranes, oral and pharyngeal mucosa normal, tolerating secretions Neck: supple, trachea midline; full ROM Chest: normal to inspection Respiratory: normal respiratory effort, speaking in full sentences, clear to auscultation, no wheezing, rales or rhonchi Cardiac: regular rate, tachycardia, S1S2 intact, no murmurs rubs or gallops GI: abdomen soft, non-tender, non-distended; no palpable mass or hepatosplenomegal Skin: no lesions, rashes or trauma appreciated Neuro: AAOx3, normal speech, moving all extremities Extremities: No peripheral edema Psych: Appropriate mood and affect Course Vital Signs Vital signs: Vital Signs Temperature 36.8 C 12/29/22 16:56 Pulse 170 H 12/29/22 16:56 Respiratory Rate 18 12/29/22 16:56 Blood Pressure 177/100 H 12/29/22 16:56 Pulse Oximetry 100 12/29/22 16:56 Temperature 36.8 C 12/29/22 16:56 Temperature Source Temporal Artery Scan 12/29/22 16:56 Pulse 170 H 12/29/22 16:56 Respiratory Rate 18 12/29/22 16:56 Blood Pressure 177/100 H 12/29/22 16:56 Blood Pressure Position Sitting 12/29/22 16:56 Pulse Oximetry 100 12/29/22 16:56 Oxygen Delivery Method Room Air 12/29/22 16:56 Oxygen Flow Rate 0 12/29/22 16:56 Pain Level 7 12/29/22 16:56
[2022-12-29 17:23] LABS: Abs Immature Grans 0.02 10^3/uL (0.0-0.06); Absolute Basophil Count 0.05 10^3/uL (0.0-0.2); Absolute Eosinophil Count 0.32 10^3/uL (0.0-0.7); Absolute Lymphocyte Count 2.24 10^3/uL (1.2-3.4); Basophils % 0.7; Eosinophils % 4.5; HCT 37.5 % (40.0-50.0); HGB 13.5 g/dL (13.5-17.5); Immature Grans % 0.3; Lymphocytes % 31.4; MCV 86 fL (80-95); MPV 10.8 fL (8.0-11.0); Monocytes % 9.8; Neutrophils % 53.3; Platelet Count 209 10^3/uL (130-400); RBC 4.35 10^6/uL (4.36-5.78); RDW 13.4 % (11.8-14.1); RDW-SD 41.3 fL; WBC 7.13 10^3/uL (4.4-10.8)
[2022-12-29] MEDS: Adenosine 6 MG/2 ML VIAL IVP (17:25)
[2022-12-29 17:49] LABS: ALT 25 U/L (16-63); AST 23 U/L (15-37); Albumin 4.2 g/dL (3.4-5.0); Alkaline Phosphatase 82 U/L (46-116); Anion Gap 8.2 mmol/L (3-11); BUN 27 mg/dL (7-18); CO2 29.8 mmol/L (21.0-32.0); CREATININE 1.2 mg/dL (0.70-1.30); Calcium 10.2 mg/dL (8.5-10.1); Chloride 99 mmol/L (98-107); Estimated GFR 63.85 (mL/min/1.73m2); Glucose 223 mg/dL (74-106); Magnesium 1.6 mg/dL (1.8-2.4); Potassium 4.4 mmol/L (3.5-5.1); Sodium 137 mmol/L (136-145); TSH (W/Ref FT4) 2.33 uIU/mL (0.36-3.74); Total Protein 8.2 g/dL (6.4-8.2)
[2022-12-29] MEDS: MAGNESIUM SULFATE 1 GM/100 ML BAG IVPB (18:10)
--- NOTE | 2022-12-29 19:24 | NUR.NOTE ---
Pt placed on care management referral list to [facility] [place] for SVT to be scheduled as soon as possible.
== END 2022-12-29 19:26 | disposition home or self-care (01) ==
PROVIDERS: Emergency Provider Emergency Medicine; PCP Nurse Practitioner Family
DX: I47.10 Supraventricular tachycardia, unspecified (principal)
CPT/HCPCS: 80053; 93005; 96365; 96376; 99284; 83735; 84443; 85025; 93010; J0153; J3475

== ENCOUNTER 2023-01-08 06:30 | Observation (INO) | payer MEDICARE, OTHER, SELFPAY ==
[2023-01-08] VITALS (34 sets, daily range): BP systolic 135–175; BP diastolic 68–109; PULSE 79–166; RESP 10–28; TEMP 36.2–36.9; O2SAT 93–100
--- NOTE | 2023-01-08 06:30 | RT.EKG_ITS ---
APPROVED REPORT Exam: Resting ECG Reason for Exam: chest pain Patient Location: E HR:162 bpm ECG Measurements Heart Rate 162 AXIS HI 224 P -33 QRSd 77 QRS 28 QT 268 T 141 QTc 439 Conclusion Supraventricular tachycardia. Repolarization abnormality, prob rate related...ST dep, T neg, tachycardia No ST segment or T wave abnormalities to suggest occlusive [place]
--- NOTE | 2023-01-08 06:37 | ED.GENADUL_ITS ---
Discharge Plan Discharge Details Chief Complaint: Arrhythmia Primary Care Provider: Laron Prado ED Provider: Mari Gauthier Home Meds and New Rx's Prescriptions: No Action triamcinolone acetonide 0.1 % cream 1 applic TP BID Qty: 30 2RF lisinopril 40 mg tablet 40 mg PO DAILY Qty: 90 3RF (DME) lancets Misc See Rx Instructions .ROUTE .MEDSUPPLY Qty: 100 3RF Rx Instructions: Twice daily bisacodyl [Dulcolax (bisacodyl)] 5 mg tablet,delayed release (DR/EC) 5 mg PO ONCE Qty: 4 0RF Rx Instructions: Take according to provider's instructions for colonoscopy prep. lovastatin 40 mg tablet 40 mg PO DAILY Qty: 90 4RF metformin 1,000 mg tablet 1,000 mg PO BID Qty: 180 1RF cinnamon bark 500 MG capsule 1,000 mg PO DAILY magnesium oxide 250 MG tablet 500 mg PO DAILY (DME) blood-glucose meter Kit See Rx Instructions .ROUTE .MEDSUPPLY Qty: 1 0RF Patient Comments: pt. reports he last tested last monday, states he only tests it occasionally Rx Instructions: As directed (DME) blood sugar diagnostic Strip See Rx Instructions .ROUTE .MEDSUPPLY Qty: 100 3RF Rx Instructions: bid (DME) Accu-Chek Guide test strips Strip See Rx Instructions .Route Qty: 100 3RF Rx Instructions: Daily glipizide 10 mg tablet 10 mg PO BID Qty: 180 3RF aspirin 81 mg Tablet 81 mg PO DAILY acetaminophen 500 mg tablet 500 mg PO Q6H PRN PRN (Reason: pain) Qty: 40 3RF ibuprofen 600 mg tablet 600 mg PO TID PRN (Reason: pain) Qty: 60 3RF Medical Decision Making 72yo M with DM, HTN, HLD, presenting with chest pain since 0530 this morning; no shortness of breath or lightheadedness. Seen in this ED on 12/29; at that time found to be in SVT and cardioverted with adenosine. Has not yet scheduled with [facility] [place]. Moderately hypertensive on arrival with HR in 160's; EKG shows SVT. Attempted vagal maneuvers without success, then cardioverted successfully with 6mg of adenosine. Approximately 30 seconds after he converted to sinus rhythm, he had approximately 45 seconds of wide-complex rhythm with rate in 80's which spontaneously returned to normal sinus rhythm. Repeat EKG NSR, appropriate intervals, no ST segment or T wave abnormalities to suggest occlusive [place] though does have some slight ST depression V3 V4 V5 V6. Chest pain resolved after cardioversion. Labs reviewed as below, CBC with no significant abnormalities, CMP/TSH/BNP/trop pending. Signed out to oncoming physician at 0730, plan to followup remainder of lab results and clinical course. With episode of wide complex rhythm, anticipate medicine admission for cardiology evaluation, electrocardiogram, etc (vs transfer to [facility]). Lab Data Lab results reviewed: Yes I reviewed the patient's lab results. Labs: Laboratory Tests Range/Units 01/08/23 06:48 WBC (4.4-10.8) 10^3/uL 5.45 RBC (4.36-5.78) 10^6/uL 4.51 Hgb (13.5-17.5) g/dL 13.7 Hct (40.0-50.0) % 38.9 L MCV (80-95) fL 86 MCH (27.0-33.0) pg 30.4 MCHC (32.0-36.0) % 35.2 RDW (11.8-14.1) % 13.7 Plt Count (130-400) 10^3/uL 192 MPV (8.0-11.0) fL 10.4 Immature Gran % 0.2 Neutrophils % 52.6 Lymphocytes % 31.4 Monocytes % 11.4 Eosinophils % 3.7 Basophils % 0.7 Nucleated RBC % (0.0-0.3) % 0.0 Absolute Neutrophils (1.2-6.7) 10^3/uL 2.87 Absolute Lymphocytes (1.2-3.4) 10^3/uL 1.71 Absolute Monocytes (0.1-0.8) 10^3/uL 0.62 Absolute Eosinophils (0.0-0.7) 10^3/uL 0.20 Absolute Basophils (0.0-0.2) 10^3/uL 0.04 HPI General Mode of arrival: ambulatory . Date/Time Provider Initiated Documentation: 01/08/23 06:34 . Limitations to Documentation: no limitations . Information obtained by: patient and old records reviewed . HPI Narrative: 72yo M with DM, HTN, HLD, presenting with chest pain since 0530 this morning. Pain is dull, constant, substernal, and nonradiating. No shortness of breath or lightheadedness. Seen in this ED on 12/29 for chest discomfort and palpitations; at that time found to be in SVT and cardioverted with adenosine. Plan for outpatient cardiology followup; has not yet scheduled with [facility]. No hx of CAD or NJ. He is otherwise in his usual state of health with no fevers, chills, rash, nausea, vomiting, abdominal pain, syncope, presyncope, LE edema, recent illness, or other concerns. Related Data Home Medications Medication Instructions Recorded Confirmed cinnamon bark 500 mg capsule 1,000 mg PO DAILY 08/30/12 01/08/23 magnesium oxide 500 mg PO DAILY 01/06/14 01/08/23 triamcinolone acetonide 0.1 % 1 applic topical BID apply to 01/10/19 01/08/23 topical cream elbow #30 grams blood-glucose meter #1 ea 02/05/20 12/30/22 blood sugar diagnostic #100 ea 04/08/22 01/08/23 blood sugar diagnostic (Accu-Chek #100 ea 04/18/22 12/30/22 Guide test strips) aspirin 81 mg tablet 81 mg PO DAILY 05/11/22 01/08/23 bisacodyl 5 mg tablet,delayed 5 mg PO ONCE #4 tabs 06/16/22 01/08/23 release (Dulcolax (bisacodyl)) lisinopril 40 mg tablet 40 mg PO DAILY #90 tabs 06/20/22 01/08/23 acetaminophen 500 mg tablet 500 mg PO Q6H PRN PRN pain #40 tabs 08/02/22 01/08/23 ibuprofen 600 mg tablet 600 mg PO TID PRN pain #60 tabs 08/02/22 01/08/23 metformin 1,000 mg tablet 1,000 mg PO BID #180 tab-caps 09/14/22 01/08/23 lovastatin 40 mg tablet 40 mg PO DAILY #90 tab-caps 09/22/22 01/08/23 glipizide 10 mg tablet 10 mg PO BID #180 tab-caps 10/05/22 01/08/23 lancets #100 ea 12/30/22 12/30/22 Previous Rx's Medication Instructions Recorded triamcinolone acetonide 0.1 % 1 applic topical BID apply to 01/10/19 topical cream elbow #30 grams blood-glucose meter #1 ea 02/05/20 blood sugar diagnostic #100 ea 04/08/22 blood sugar diagnostic (Accu-Chek #100 ea 04/18/22 Guide test strips) bisacodyl 5 mg tablet,delayed 5 mg PO ONCE #4 tabs 06/16/22 release (Dulcolax (bisacodyl)) lisinopril 40 mg tablet 40 mg PO DAILY #90 tabs 06/20/22 acetaminophen 500 mg tablet 500 mg PO Q6H PRN PRN pain #40 tabs 08/02/22 ibuprofen 600 mg tablet 600 mg PO TID PRN pain #60 tabs 08/02/22 metformin 1,000 mg tablet 1,000 mg PO BID #180 tab-caps 09/14/22 lovastatin 40 mg tablet 40 mg PO DAILY #90 tab-caps 09/22/22 glipizide 10 mg tablet 10 mg PO BID #180 tab-caps 10/05/22 lancets #100 ea 12/30/22 Allergies Allergy/AdvReac Type Severity Reaction Status Date / Time No Known Allergies Allergy Verified 01/08/23 06:32 General ARI: 2 Review of Systems Narrative: see HPI PFSH All Active Problems SVT (supraventricular tachycardia) (Chronic) Callus (Acute) Screening for colon cancer (Acute) Diabetic retinopathy (Acute 09/04/12) Hyperlipidemia (Acute 09/05/13) Osteoarthritis of right knee (Acute) Positional vertigo (Acute) Essential hypertension (Acute) Chondrocalcinosis (Acute) knees Effusion, right knee (Acute) Osteoarthritis of knee (Acute) Diabetes mellitus type 2, insulin dependent (Acute) Bunion (Acute) Actinic keratosis (Acute) Erectile dysfunction (Acute) Callus of foot (Acute) History of total right knee replacement (Acute) Painful total knee replacement, right (Acute) Fibrosis of right knee joint (Acute) s/p arthroscopy and synovectomy of right TKA DOS: 07/27/21 Numbness of left hand (Acute) Bilateral carpal tunnel syndrome (Acute) s/p Left ECTR on 08/02/22 Cubital tunnel syndrome, bilateral (Acute) s/p Left cubital tunnel release on 08/02/22 Medical History Hx of essential hypertension Hx of gout Hx of type 2 diabetes mellitus Hx of vertigo Surgical History Extraction of cataract 04/29/14; DR. POP; LEFT, jpt. reports both sides Hx of colonoscopy Hx of total knee arthroplasty R knee Family History Mother , 80 Cancer Father , at 24 of blood poisoning No problems noted. Sister No problems noted. Brother No problems noted. Maternal Grandfather , 75 Heart disease Paternal Grandfather No problems noted. Maternal Grandmother No problems noted. Paternal Grandfather No problems noted. Son No problems noted. Son No problems noted. Son No problems noted. Daughter No problems noted. Social History (Updated 09/27/22 @ 10:09 by Courtney Snyder) Smoking/Tobacco Use Status: Never Second Hand Exposure: Yes Smoking risk assessment performed?: Yes Alcohol Intake: current Alcohol Intake frequency: a few times a week Alcohol type: beer Drug use: Never Substance use type: does not use Caregiver/Support person: No Household members: family Housing: house Communication Needs: None Do you need help understanding health information?: Often Pets and animals: Yes Pets and animals: dog(s) Sexually active: No Do you think of yourself as: straight/heterosexual Current gender identity: male What is your relationship status?: How often do you talk on the phone with friends or family?: three or more times per week How often do you get together with friends or relatives?: three or more times per week How often do you attend scientology or hindu services?: decline to answer Do you belong to any clubs or organized social groups?: yes Panel score (0-1 are the most socially isolated patients): 2 What type of physical activity do you participate in: other Details: Bowling Duration: 15-30 minutes/day Frequency: 1-2 times per week Bekah/Christian: None Special bekah needs: No Seatbelt use: always 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 Head: Normocephalic, atraumatic Neck: Trachea midline, Neck supple. ENT: MMM. Cardiac: Tachycardiac, regular, no murmurs appreciated Resp: No respiratory distress. CTAB. Abd: Soft, non-distended, nontender : No suprapubic tenderness. Extremities: No deformities. No peripheral edema. Neurologic: GCS 15. Moves all extremities freely against gravity Critical Care Time Critical Care Time Critical Care Time: Yes Total Critical Care Time: 32 Attestation: Due to a high probability of clinically significant, life threatening deterioration, the patient required my highest level of preparedness to intervene emergently and I personally spent this critical care time directly and personally managing the patient. This critical care time included obtaining a history; examining the patient; pulse oximetry; ordering and review of studies; arranging urgent treatment with development of a management plan; evaluation of patient's response to treatment; frequent reassessment; and, discussions with other providers. This critical care time was performed to assess and manage the high probability of imminent, life-threatening deterioration that could result in multi-organ failure. It was exclusive of separately billable procedures.
--- NOTE | 2023-01-08 06:45 | RT.EKG_ITS ---
APPROVED REPORT Exam: Resting ECG Reason for Exam: post cardioversion, chest pain Patient Location: E HR:90 bpm ECG Measurements Heart Rate 90 AXIS DE 129 P 62 QRSd 81 QRS 2 QT 369 T -31 QTc 451 Conclusion normal sinus rhythm Appropriate intervals. ST depr, anterolateral lds V3 V4 V5 V[address] segment or T wave abnormalities to suggest occlusive [place]
[2023-01-08 06:55] LABS: Abs Immature Grans 0.01 10^3/uL (0.0-0.06); Absolute Basophil Count 0.04 10^3/uL (0.0-0.2); Absolute Lymphocyte Count 1.71 10^3/uL (1.2-3.4); Absolute Monocyte Count 0.62 10^3/uL (0.1-0.8); Absolute Neutrophil Count 2.87 10^3/uL (1.2-6.7); Basophils % 0.7; Eosinophils % 3.7; HCT 38.9 % (40.0-50.0); HGB 13.7 g/dL (13.5-17.5); Immature Grans % 0.2; Lymphocytes % 31.4; MCH 30.4 pg (27.0-33.0); MCHC 35.2 % (32.0-36.0); MCV 86 fL (80-95); MPV 10.4 fL (8.0-11.0); Monocytes % 11.4; Neutrophils % 52.6; Platelet Count 192 10^3/uL (130-400); RBC 4.51 10^6/uL (4.36-5.78); RDW 13.7 % (11.8-14.1); RDW-SD 42.3 fL; WBC 5.45 10^3/uL (4.4-10.8)
[2023-01-08] MEDS: Adenosine 6 MG/2 ML VIAL IVP (06:55)
[2023-01-08 07:28] LABS: ALT 31 U/L (16-63); AST 25 U/L (15-37); Alkaline Phosphatase 84 U/L (46-116); Anion Gap 6.2 mmol/L (3-11); BUN 25 mg/dL (7-18); Bilirubin, Total 0.9 mg/dL (0.2-1.0); CO2 31.8 mmol/L (21.0-32.0); CREATININE 1.2 mg/dL (0.70-1.30); Calcium 10.1 mg/dL (8.5-10.1); Chloride 98 mmol/L (98-107); Estimated GFR 63.85 (mL/min/1.73m2); Glucose 249 mg/dL (74-106); Magnesium 1.9 mg/dL (1.8-2.4); NT-proBNP 809 pg/mL (<300); Potassium 4.3 mmol/L (3.5-5.1); Sodium 136 mmol/L (136-145); TSH (W/Ref FT4) 2.88 uIU/mL (0.36-3.74); Total Protein 7.9 g/dL (6.4-8.2); Troponin I < 50 ng/L (<or=60)
--- NOTE | 2023-01-08 07:45 | DI.RAD_ITS ---
Exam(s) XR PORTABLE CHEST AP EXAM: XR PORTABLE CHEST AP CLINICAL HISTORY: chest pain TECHNIQUE: 2D digital imaging was performed. COMPARISON: No exams were available for comparison FINDINGS: A defibrillator pad overlies the left lung base. Monitoring leads are noted as well. LUNGS: Clear. No pleural abnormality seen. HEART: Enlarged. AORTA: Normal diameter. BONES: Unremarkable for age. Soft tissues: Unremarkable. IMPRESSION: No acute findings. DATA REPOSITORY: RADIATION DOSE DELIVERED:
--- NOTE | 2023-01-08 07:49 | W.EDPROG ---
Date of service: 01/08/23 Time of Service: 07:49 Medical Decision Making 0700 patient received in signout. 72-year-old gentleman with multiple medical comorbidities presenting with palpitations. Found to be in SVT. Patient did receive 6 mg of adenosine and cardioverted to sinus rhythm. At the time of signout, telemetry monitoring, lab work pending. Given EKG changes and multiple presentations, patient likely requires hospitalization at this time. 0750 Lab work reviewed. CBC stable. Electrolytes and renal function unremarkable. Elevated BNP noted. No prior for comparison. 0820 troponin not elevated. Patient has been observed on telemetry monitoring. He was maintaining sinus rhythm. Discussed with hospitalist. Given his age, risk factors, EKG changes and presentation, will admit to the hospital for further telemetry monitoring and cardiology evaluation Medical Records Medical records reviewed: Yes I reviewed the patient's medical records. Lab Data Lab results reviewed: Yes I reviewed the patient's lab results. Lab results narrative: Concern for elevated BNP. No prior for comparison Sign Out Sign Out Data: Sign Out Comment: 72yo M no hx CAD, presenting with second episode of SVT in the past two weeks (last 12/29). Converted with 6mg adenosine. After cardioversion had brief (~45 seconds) episode of wide complex rhythm. Pending CMP/TSH/BNP/trop. Likely admit for monitoring, echo, cardiology tomorrow. Last updated by Mari Gauthier MD at 01/08/23 07:37 Discharge Plan Discharge Details Chief Complaint: Arrhythmia Primary Care Provider: Laron Prado ED Provider: Linda Durand Home Meds and New Rx's Prescriptions: No Action triamcinolone acetonide 0.1 % cream 1 applic TP BID Qty: 30 2RF lisinopril 40 mg tablet 40 mg PO DAILY Qty: 90 3RF (DME) lancets Misc See Rx Instructions .ROUTE .MEDSUPPLY Qty: 100 3RF Rx Instructions: Twice daily bisacodyl [Dulcolax (bisacodyl)] 5 mg tablet,delayed release (DR/EC) 5 mg PO ONCE Qty: 4 0RF Rx Instructions: Take according to provider's instructions for colonoscopy prep. lovastatin 40 mg tablet 40 mg PO DAILY Qty: 90 4RF metformin 1,000 mg tablet 1,000 mg PO BID Qty: 180 1RF cinnamon bark 500 MG capsule 1,000 mg PO DAILY magnesium oxide 250 MG tablet 500 mg PO DAILY (DME) blood-glucose meter Kit See Rx Instructions .ROUTE .MEDSUPPLY Qty: 1 0RF Patient Comments: pt. reports he last tested last monday, states he only tests it occasionally Rx Instructions: As directed (DME) blood sugar diagnostic Strip See Rx Instructions .ROUTE .MEDSUPPLY Qty: 100 3RF Rx Instructions: bid (DME) Accu-Chek Guide test strips Strip See Rx Instructions .Route Qty: 100 3RF Rx Instructions: Daily glipizide 10 mg tablet 10 mg PO BID Qty: 180 3RF aspirin 81 mg Tablet 81 mg PO DAILY acetaminophen 500 mg tablet 500 mg PO Q6H PRN PRN (Reason: pain) Qty: 40 3RF ibuprofen 600 mg tablet 600 mg PO TID PRN (Reason: pain) Qty: 60 3RF
--- NOTE | 2023-01-08 08:54 | DI.VRAD_ITS ---
PROCEDURE INFORMATION: Exam: XR Chest Exam date and time: 01/08/2023 8:21 AM Age: 72 years old Clinical indication: Pain; Chest pressure TECHNIQUE: Imaging protocol: Radiologic exam of the chest. Views: 1 view. COMPARISON: No relevant prior studies available. FINDINGS: Tubes, catheters and devices: Defibrillator pad projects over the left inferior chest. Lungs: No consolidation. Pleural spaces: No pleural effusion. No pneumothorax. Heart/Mediastinum: No cardiomegaly. Bones/joints: No acute fracture. Degenerative changes of the shoulders and spine. IMPRESSION: No acute cardiopulmonary findings. Dictated and Authenticated by: Soila Blanco MD. Ordering:[facility] Kizzy Mckeon MD
--- NOTE | 2023-01-08 09:20 | INITIAL_ITS ---
Date of service: 01/08/23 Time of Service: 09:21 Care Management Initial Assmt Initial Assessment REASON FOR HOSPITALIZATION:: SVT PREVIOUS FUNCTIONAL STATUS/SOCIAL/FAMILY SUPPORTS:: Bradley lives in [place] and his 20 year old grandson lives with him. He has 4 children who all live in the area who are and are close and supportive. Bradley spends his time working at home gardening, cutting wood etc. He is independent with ADLs and does not receive any community services. CURRENT FUNCTIONAL STATUS:: Bradley was sitting up in a chair visiting with one of his sons when CM met with mi. He was pleasant and agreeable to conversation. Bradley shared that he is feeling much better after his heart rhythm converted back to NSR with a rate in the 80s. His heart rate was in the 160s and he had chest pain and palpitations upon presentation to the ED. Initially his troponins were negative but the second draw was 632 and the third was 1491. A catrdiology consult has been requested for tomorrow and he will be closely monitored ov [facility]. ADVANCE DIRECTIVES:: none on file Has patient been provided with info about the portal/API?: Yes Did the patient sign up for the portal?: Yes CODE STATUS:: Full Code INSURANCE COVERAGE / FINANCIAL ISSUES:: Medicare [employer] CURRENT HOME/COMMUNITY SERVICES/EQUIPMENT:: none PRIMARY CARE PHYSICIAN:: Laron Prado POTENTIAL DISCHARGE NEEDS:: follow up with Cardiology, PCP and other community p ngoc Bradley may need to be transferred to [facility] if the SVT recurs PATIENT/FAMILY EDUCATION NEEDS:: Review of discharge instructions, follow up plan, limitations, activity, discuss Ask Me Three' TRANSPORTATION:: to be determined by disposition PLAN:: Bradley's discharge plan is unclear at this time. He has 2 episodes of SVT in the past 10 days. He has converted to NSR at this time, but further episodes may require transfer to a tertiary care facility. Additionally his troponins have gone from <59 to 1491 today. CM will follow and continue to assess for discharge planning concerns. PFSH All Active Problems SVT (supraventricular tachycardia) (Chronic) Callus (Acute) Screening for colon cancer (Acute) Diabetic retinopathy (Acute 09/04/12) Hyperlipidemia (Acute 09/05/13) Osteoarthritis of right knee (Acute) Positional vertigo (Acute) Essential hypertension (Acute) Chondrocalcinosis (Acute) knees Effusion, right knee (Acute) Osteoarthritis of knee (Acute) Diabetes mellitus type 2, insulin dependent (Acute) Bunion (Acute) Actinic keratosis (Acute) Erectile dysfunction (Acute) Callus of foot (Acute) History of total right knee replacement (Acute) Painful total knee replacement, right (Acute) Fibrosis of right knee joint (Acute) s/p arthroscopy and synovectomy of right TKA DOS: 07/27/21 Numbness of left hand (Acute) Bilateral carpal tunnel syndrome (Acute) s/p Left ECTR on 08/02/22 Cubital tunnel syndrome, bilateral (Acute) s/p Left cubital tunnel release on 08/02/22 Medical History Hx of essential hypertension Hx of gout Hx of type 2 diabetes mellitus Hx of vertigo Surgical History Extraction of cataract 04/29/14; DR. POP; LEFT, jpt. reports both sides Hx of colonoscopy Hx of total knee arthroplasty R knee Family History Mother , 80 Cancer Father , at 24 of blood poisoning No problems noted. Sister No problems noted. Brother No problems noted. Maternal Grandfather , 75 Heart disease Paternal Grandfather No problems noted. Maternal Grandmother No problems noted. Paternal Grandfather No problems noted. Son No problems noted. Son No problems noted. Son No problems noted. Daughter No problems noted. Social History (Updated 09/27/22 @ 10:09 by Courtney Snyder) Smoking/Tobacco Use Status: Never Second Hand Exposure: Yes Smoking risk assessment performed?: Yes Alcohol Intake: current Alcohol Intake frequency: a few times a week Alcohol type: beer Drug use: Never Substance use type: does not use Caregiver/Support person: No Household members: family Housing: house Communication Needs: None Do you need help understanding health information?: Often Pets and animals: Yes Pets and animals: dog(s) Sexually active: No Do you think of yourself as: straight/heterosexual Current gender identity: male What is your relationship status?: How often do you talk on the phone with friends or family?: three or more times per week How often do you get together with friends or relatives?: three or more times per week How often do you attend sikh or mu-ism services?: decline to answer Do you belong to any clubs or organized social groups?: yes Panel score (0-1 are the most socially isolated patients): 2 What type of physical activity do you participate in: other Details: Bowling Duration: 15-30 minutes/day Frequency: 1-2 times per week Bekah/Denominational: None Special bekah needs: No Seatbelt use: always Drive intox or ride w/intox funeral car driver: No Do you feel safe at home: Yes Do you feel safe in your relationship?: Yes
[2023-01-08] MEDS: Magnesium Oxide 400 MG TAB PO (10:27)
[2023-01-08] MEDS: Lisinopril 20 MG TAB 40 MG PO (10:27)
[2023-01-08] MEDS: glipiZIDE 10 MG TAB PO ×2 (10:27→17:01)
[2023-01-08] MEDS: Aspirin E.C. 81 MG TABEC PO (10:27)
[2023-01-08 10:43] LABS: Troponin I 632 ng/L (<or=60)
[2023-01-08] MEDS: dilTIAZem 60 MG TAB PO ×3 (11:12→21:36)
[2023-01-08] MEDS: Heparin in 0.45% NaCl 25,000 UNIT/250 ML BAG 10 UNIT IV (12:24)
[2023-01-08] MEDS: Normal Saline Flush 10 ML SYR IVP (12:26)
[2023-01-08] MEDS: Insulin Aspart 300 UNITS/3 ML PEN SC ×2 (12:27→17:01)
--- NOTE | 2023-01-08 13:30 | RT.EKG_ITS ---
APPROVED REPORT Exam: Resting ECG Reason for Exam: elevated troponin Patient Location: I HR:84 bpm ECG Measurements Heart Rate 84 AXIS MO 129 P 54 QRSd 82 QRS 3 QT 421 T 0 QTc 498 Conclusion Sinus rhythm...normal P axis, V-rate 50- 99
[2023-01-08 13:32] LABS: Troponin I 1491 ng/L (<or=60)
[2023-01-08 16:28] LABS: Troponin I 1628 ng/L (<or=60)
[2023-01-08] MEDS: Lovastatin 20 MG TAB PO (17:00)
--- NOTE | 2023-01-08 17:24 | W.PM.HP.N ---
Date of service: 01/08/23 Time of Service: 17:24 Assessment and Plan Assessment and plan (1) SVT (supraventricular tachycardia): Status: Chronic Assessment and plan: Two known episodes; both treated with adenosine. Now in NSR. Monitor on telemetry. Initiate prophylaxis with cardizem. Cardiology consult. (2) Hyperlipidemia: Status: Acute Qualifiers: Hyperlipidemia type: mixed hyperlipidemia Qualified Code(s): E78.2 - Mixed hyperlipidemia (3) Essential hypertension: Status: Acute Assessment and plan: He is on lovastatin 40mg daily. Decrease lovastatin to 20mg daily d/t initiation of cardizem and the interaction of the two. Monitor. (4) Diabetes mellitus type 2, insulin dependent: Status: Acute Assessment and plan: Cont home glipizide 10mg BID Hold metformin in event of potential need for cardiac cath and EP studies, though doubt this will occur soon but likely later as an outpt. He has already [place] [facility] [place] cardiology. Monitor glucose ACHS SS correction dosing of insulin. History of Present Illness History of Present Illness Chief Complaint: Chest pain Narrative: Mr Gonzalez is a 72 yo male with a PMH of DM, HTN, HLD that presented to the ED with CP that began at appx 0530. No shortness of breath, diaphoresis or presyncope. Pain felt like reflux. He was found to be in SVT and was administered adenosine and converted to NSR. He had been evaluated in the ED on 12/29/22 for SVT and cardioverted with adenosine then as well. During the current ED admission, appx 30 seconds after he converted to sinus he had approximately 45 seconds of wide-complex rhythm , rate in the 80's then back to NSR. Repeat EKG w/o ST segment or T wave abnormalities to suggest occlusive RI. There were some slight ST depression s in V3, V4, V5, V6. No chest after cardioversion. He will be admitted for telemetry monitoring, troponin trending and an echocardiogram. Of note, he underwent an exercise stress test on 05/16/22: 1. The resting electrocardiogram was within normal limits 2. Patient exercised on the Yo protocol and completed a workload of 6.29 METS, stopping due to fatigue 3. Normal heart rate and blood pressure response to exercise. Patient achieved 87% of predicted heart rate for age 4. There was no electrocardiographic evidence of myocardial ischemia 5. Ventricular ectopy was noted Review of Systems All systems reviewed & are unremarkable except as noted in HPI and below PFSH All Active Problems SVT (supraventricular tachycardia) (Chronic) Callus (Acute) Screening for colon cancer (Acute) Diabetic retinopathy (Acute 09/04/12) Hyperlipidemia (Acute 09/05/13) Osteoarthritis of right knee (Acute) Positional vertigo (Acute) Essential hypertension (Acute) Chondrocalcinosis (Acute) knees Effusion, right knee (Acute) Osteoarthritis of knee (Acute) Diabetes mellitus type 2, insulin dependent (Acute) Bunion (Acute) Actinic keratosis (Acute) Erectile dysfunction (Acute) Callus of foot (Acute) History of total right knee replacement (Acute) Painful total knee replacement, right (Acute) Fibrosis of right knee joint (Acute) s/p arthroscopy and synovectomy of right TKA DOS: 07/27/21 Numbness of left hand (Acute) Bilateral carpal tunnel syndrome (Acute) s/p Left ECTR on 08/02/22 Cubital tunnel syndrome, bilateral (Acute) s/p Left cubital tunnel release on 08/02/22 Medical History Hx of essential hypertension Hx of gout Hx of type 2 diabetes mellitus Hx of vertigo Surgical History Extraction of cataract 04/29/14; DR. POP; LEFT, jpt. reports both sides Hx of colonoscopy Hx of total knee arthroplasty R knee Family History Mother , 80 Cancer Father , at 24 of blood poisoning No problems noted. Sister No problems noted. Brother No problems noted. Maternal Grandfather , 75 Heart disease Paternal Grandfather No problems noted. Maternal Grandmother No problems noted. Paternal Grandfather No problems noted. Son No problems noted. Son No problems noted. Son No problems noted. Daughter No problems noted. Social History (Updated 09/27/22 @ 10:09 by Courtney Snyder) Smoking/Tobacco Use Status: Never Second Hand Exposure: Yes Smoking risk assessment performed?: Yes Alcohol Intake: current Alcohol Intake frequency: a few times a week Alcohol type: beer Drug use: Never Substance use type: does not use Caregiver/Support person: No Household members: family Housing: house Communication Needs: None Do you need help understanding health information?: Often Pets and animals: Yes Pets and animals: dog(s) Sexually active: No Do you think of yourself as: straight/heterosexual Current gender identity: male What is your relationship status?: How often do you talk on the phone with friends or family?: three or more times per week How often do you get together with friends or relatives?: three or more times per week How often do you attend yarsanism or congregation services?: decline to answer Do you belong to any clubs or organized social groups?: yes Panel score (0-1 are the most socially isolated patients): 2 What type of physical activity do you participate in: other Details: Bowling Duration: 15-30 minutes/day Frequency: 1-2 times per week Bekah/Jewish: None Special bekah needs: No Seatbelt use: always Drive intox or ride w/intox bus driver school: No Do you feel safe at home: Yes Do you feel safe in your relationship?: Yes Meds Allergies and Home Medications Allergies Allergy/AdvReac Type Severity Reaction Status Date / Time No Known Allergies Allergy Verified 01/08/23 06:32 Home Medications Medication Instructions Recorded Confirmed Type cinnamon bark 500 mg capsule 1,000 mg PO DAILY 08/30/12 01/08/23 History magnesium oxide 500 mg PO DAILY 01/06/14 01/08/23 History triamcinolone acetonide 0.1 % 1 applic topical BID apply to 01/10/19 01/08/23 Rx topical cream elbow #30 grams blood-glucose meter #1 ea 02/05/20 12/30/22 Rx blood sugar diagnostic #100 ea 04/08/22 01/08/23 Rx blood sugar diagnostic (Accu-Chek #100 ea 04/18/22 12/30/22 Rx Guide test strips) aspirin 81 mg tablet 81 mg PO DAILY 05/11/22 01/08/23 History bisacodyl 5 mg tablet,delayed 5 mg PO ONCE #4 tabs 06/16/22 01/08/23 Rx release (Dulcolax (bisacodyl)) lisinopril 40 mg tablet 40 mg PO DAILY #90 tabs 06/20/22 01/08/23 Rx acetaminophen 500 mg tablet 500 mg PO Q6H PRN PRN pain #40 tabs 08/02/22 01/08/23 Rx ibuprofen 600 mg tablet 600 mg PO TID PRN pain #60 tabs 08/02/22 01/08/23 Rx metformin 1,000 mg tablet 1,000 mg PO BID #180 tab-caps 09/14/22 01/08/23 Rx lovastatin 40 mg tablet 40 mg PO DAILY #90 tab-caps 09/22/22 01/08/23 Rx glipizide 10 mg tablet 10 mg PO BID #180 tab-caps 10/05/22 01/08/23 Rx lancets #100 ea 12/30/22 12/30/22 Rx Exam Narrative Exam Narrative: General: NAD, cooperative. Head: Normocephalic, atraumatic Neck: No JVD, FROM ENT: MMM. Cardiac: tachy, regular, no murmur. Resp: No respiratory distress. CTAB. Abd: Soft, non-distended, nontender Extremities: No deformities. No peripheral edema. Neurologic: GCS 15. Moves all extremities freely against gravity Results Labs 01/08/23 06:48 01/08/23 06:48 Labs: Laboratory Results - last 24 hr 01/08/23 01/08/23 01/08/23 06:48 10:00 11:32 WBC 5.45 RBC 4.51 Hgb 13.7 Hct 38.9 L MCV 86 MCH 30.4 MCHC 35.2 RDW 13.7 Plt Count 192 MPV 10.4 Immature Gran % 0.2 Neutrophils % 52.6 Lymphocytes % 31.4 Monocytes % 11.4 Eosinophils % 3.7 Basophils % 0.7 Nucleated RBC % 0.0 Absolute Neutrophils 2.87 Absolute Lymphocytes 1.71 Absolute Monocytes 0.62 Absolute Eosinophils 0.20 Absolute Basophils 0.04 APTT 25.0 Sodium 136 Potassium 4.3 Chloride 98 Carbon Dioxide 31.8 Anion Gap 6.2 BUN 25 H Creatinine 1.2 Est GFR (CKD-EPI 2020) 63.85 Glucose 249 H Calcium 10.1 Magnesium 1.9 Total Bilirubin 0.9 AST 25 ALT 31 Alkaline Phosphatase 84 Troponin I < 50 632 H* NT-Pro-B Natriuret Pep 809 H Total Protein 7.9 Albumin 4.0 TSH 2.88 01/08/23 01/08/23 13:02 15:55 WBC RBC Hgb Hct MCV MCH MCHC RDW Plt Count MPV Immature Gran % Neutrophils % Lymphocytes % Monocytes % Eosinophils % Basophils % Nucleated RBC % Absolute Neutrophils Absolute Lymphocytes Absolute Monocytes Absolute Eosinophils Absolute Basophils APTT Sodium Potassium Chloride Carbon Dioxide Anion Gap BUN Creatinine Est GFR (CKD-EPI 2020) Glucose Calcium Magnesium Total Bilirubin AST ALT Alkaline Phosphatase Troponin I 1491 H* 1628 H* NT-Pro-B Natriuret Pep Total Protein Albumin TSH Last Vital Signs Temp 36.2 C L 01/08/23 15:47 Pulse 89 01/08/23 15:47 Resp 18 01/08/23 15:47 BP 162/81 H 01/08/23 15:47 Pulse Ox 99 01/08/23 15:47 PAWSS Have you Been Recently Intoxicated or Drunk Within the Last 30 days?: No Have you Ever Experienced Previous Episodes of Alcohol Withdrawal?: No Have you ever Experienced Withdrawal Seizures?: No Have you ever Experienced Delirium Tremens(DT)s?: No Have you ever undergone Alcohol Rehabilitation Treatment (i.e, inpt ot outpatient treatment programs)?: No Have you ever Experienced Blackouts?: No Have you ever Combined Alcohol with other Downers within the last 90 days?: No Have you ever Combined Alcohol with any other Substance of Abuse during the last 90 days?: No Positive Blood Alcohol level on Presentation? [PCS.BAL]: No Evidence of Increased Autonomic Activity (i.e. HR>120, tremor, sweating, agitation, nausea)?: No Result: 0 Time Spent Time spent with Patient: 40-54 minutes Time was spent: preparing to see the patient(eg.review tests), obtaining and/or reviewing separately otained hiistory, ordering medications,tests, procedures, referring, communicating with other health day care aide, indepentently interpreting results, counseling the patient and care coordination
[2023-01-08 19:07] LABS: PTT Activated 41.8 sec (23.6-32.8)
[2023-01-08 19:12] LABS: Troponin I 1563 ng/L (<or=60)
[2023-01-08] MEDS: Heparin in 0.45% NaCl 25,000 UNIT/250 ML BAG 11.5 UNIT IV (19:32)
[2023-01-09] VITALS (8 sets, daily range): BP systolic 120–165; BP diastolic 62–94; PULSE 76–98; RESP 15–22; TEMP 35.5–36.9; O2SAT 95–98
--- NOTE | 2023-01-09 | DI.US_ITS ---
APPROVED REPORT EXAM: Comprehensive 2D, Doppler, and color-flow Echocardiogram Patient Location: In-Patient Room/Bed: 209 Professor Of Exercise Science: Nohemi Hewitt RDCS (AE) Indications: SVT, DM, HTN Other Information Study Quality: Adequate Conclusion Normal left ventricular wall thickness and chamber size. Estimated ejection fraction is 50 to 55%. The inferoapical segment may be hypocontractile Normal right ventricular size and systolic function Borderline dilated left atrium. Normal right atrial size The aortic valve is sclerotic and trileaflet with mild regurgitation Normal mitral valve with mild regurgitation Wall motion Left Ventricle The left ventricle is normal size. Left ventricular systolic function is borderline There is normal left ventricular wall thickness. Possible inferoapical hypokinesis There is no ventricular septal de fect visualized. LVEF is 50-55%. Right Ventricle The right ventricle is normal size. The right ventricular systolic function is normal. Atria Left atrium is borderline dilated. The right atrium size is normal. The interatrial septum is intact with no evidence for an atrial septal defect. Aortic Valve The Aortic valve is sclerotic. Aortic valve is trileaflet. There is no aortic valvular stenosis. Mild aortic regurgitation. Mitral Valve The mitral valve is normal in structure. No evidence of mitral valve stenosis. mild mitral regurgitat ion. Tricuspid Valve The tricuspid valve is normal in structure. There is no tricuspid valve stenosis. Trace tricuspid reg urgitation. Unable to assess PA pressure. Pulmonic Valve The pulmonary valve is normal in structure. There is no pulmonic valvular stenosis. There is no pulmo camelia valvular regurgitation. Great Vessels The aortic root is normal in size. The ascending aorta is normal in size. Aortic arch is normal in ca liber. IVC is normal in size and collapses >50% with inspiration. Pericardium There is no pericardial effusion. 2D Dimensions IVSD d PLAX 0.94 cm M: 0.6-1.2 Ao Root d 3.48 cm M: 3.1 - 3.7 LVPW d PLAX 0.94 cm M: 0.6 - 1.2 Ao Asc Diam d 3.47 cm M: 2.6 - 3.4 LVID d PLAX 4.91 cm M: 4.2 - 5.8 LVDs 3.82 cm M: 2.5 - 4.0 LV EF Teichholz 44.8 % FS 22.26 % LV EDV (Teich) 113.5 mL LV ESV (Teich) 62.7 mL M-Mode TAPSE 2.17 cm (M/F) >1.7 Auto EF LV EDV A4C 127.7 mL LV EDV A2C 153.2 mL LV EDV BP 141.5 mL LV ESV A4C 66.5 mL LV ESV A2C 87.6 mL LV ESV BP 77.6 mL LVEF(%) A4C 47.9 % LVEF(%) A2C 42.8 % LVEF(%) BP 45.2 % LV SV A4C 61.2 ml LV SV A2C 65.6 ml LV SV BP 63.9 ml LV CO A4C 5.3 L/min LV CO A2C 5.7 L/min LV CO BP 5.5 L/min HR A4C 86.50 BPM HR A2C 86.96 BPM LV EDV Index (BP) RV Strain Global Peak Long. Strain A4C 15.89 Global Peak Long. Strain A4C FW 19.58 LA Volume LA Length A4C 5.6 cm LA Length A2C 5.1 cm LA Area A4C s 21.51 cm2 LA Area A2C s 21.52 cm2 LA Vol A4C A-L 70.09 mL LA Vol A2C A-L 76.75 mL LA Vol Biplane A-L 76.4 mL LA Vol/BSA A4C A-L LA Vol/BSA A2C A-L LA Vol/BSA BP A-L 36.7 mL/m2 LA Vol A4C MOD 64.9 mL LA Vol A2C MOD 72.5 mL LA Vol BP MOD 75.8 mL RA Volume RA Area A4C 10.7 cm2 RA ESV A4C (A-L) 22.5mL RA Vol/BSA A4C A-L RA Length A4C 4.4 cm RA ESV A4C (MOD) 21.5mL LV Diastology MV E' medial 0.079 (>0.07 m/s) MV E Vmax 0.91 (0.4-1.3 m/s) MV E/E' MED 11.48 (<14) MV A Vmax 1.00 (0.4-1.3 m/s) MV E' lateral 0.077 (>0.1 m/s) E/A Ratio 0.9 MV E/E' LAT 11.91 (<14) MV E' Average 0.078 m/s MV E/E'(average) 11.69 Aortic Valve AoV Vmax 1.50 m/s LVOT Vmax 1.01 m/s AoV Peak Grad 9.0 mmHg LVOT Peak Grad 4.1 mmHg AoV Area (Vmax) 2.00 cm2 LVOT VTI 0.228 m AoV VTI 0.345 m LVOT Mean Grad 2.3 mmHg AoV Mean Timbo. 1.04 m/s LVOT SV 67.83 mL AoV Mean Grad 5.0 mmHg LVOT Diam s 1.90 cm AoV Area (VTI) 1.97 cm2 Velocity Ratio 0.67 Mitral Valve MV DT 209 (160-240 msec) MV Vmax TIPS 1.11 m/s MV Mean Grad 2.6 (<2mmHg) MV VTI 0.291 m Pulmonary Valve PV Vmax 1.06 (0.5-1.5 m/s) RVOT Vmax 0.73 m/s PV Peak Grad 4.5 mmHg RVOT Peak Gr. 2.1 mmHg PV Mean Timbo 0.76 m/s RVOT VTI 0.142 m PV Mean Grad 2.6 mmHg RVOT Mean Gr. 1.1 mmHg Tricuspid Valve RA Pressure 3.00 mmHg TV S' 0.17 m/s
[2023-01-09 02:05] LABS: PTT Activated 54.5 sec (23.6-32.8)
[2023-01-09] MEDS: Heparin in 0.45% NaCl 25,000 UNIT/250 ML BAG 11.5 UNIT IV (04:49)
[2023-01-09 07:21] LABS: Anion Gap 7.3 mmol/L (3-11); BUN 20 mg/dL (7-18); CO2 27.7 mmol/L (21.0-32.0); Calcium 9.2 mg/dL (8.5-10.1); Chloride 103 mmol/L (98-107); Estimated GFR 79.47 (mL/min/1.73m2); Glucose 208 mg/dL (74-106); Potassium 4.2 mmol/L (3.5-5.1); Sodium 138 mmol/L (136-145)
[2023-01-09] MEDS: Aspirin E.C. 81 MG TABEC PO (08:39)
[2023-01-09] MEDS: glipiZIDE 10 MG TAB PO ×2 (08:39→16:58)
[2023-01-09] MEDS: Magnesium Oxide 400 MG TAB PO (08:39)
[2023-01-09] MEDS: dilTIAZem 60 MG TAB PO (08:39)
[2023-01-09] MEDS: Lisinopril 20 MG TAB 40 MG PO (08:39)
[2023-01-09] MEDS: Insulin Aspart 300 UNITS/3 ML PEN SC ×3 (08:40→16:58)
--- NOTE | 2023-01-09 08:45 | W.CARDCONSUL ---
Date of service: 01/09/23 Time of Service: 08:45 Assessment and Plan Assessment and plan (1) SVT (supraventricular tachycardia): Status: Chronic Assessment and plan: Patient has had at least 2 episodes of SVT. He should be on a beta-junior. I would recommend metoprolol succinate 100 mg daily to start. Beta-junior would be preferred rather than diltiazem (2) Myocardial infarction due to demand ischemia: Status: Acute Assessment and plan: Patient has evidence of myocardial necrosis due to demand ischemia on the basis of his SVT. Would await echocardiogram. It was discussed that this finding does not necessarily mean that he has obstructive coronary disease. Depending on echo results (if normal, consider outpatient MPI) or if abnormal consider transfer for cardiac catheterization. History of Present Illness History of Present Illness Chief Complaint: Chest tightness Narrative: This is a 72-year-old man who was admitted because of supraventricular tachycardia. He initially presented to the hospital in early December with SVT. He was treated with adenosine and sinus rhythm was restored. He was discharged from the emergency room without any AV kaushik blocking medications, though a referral was placed to [facility] cardiology. Subsequently the patient was stable, active, no exertional symptoms. He awakened from sleep on the day of presentation feeling as though his chest was tight and symptoms were similar to those he had with prior SVT. He came to the emergency room, was in SVT, again got adenosine. This time he was admitted. His troponins have been elevated. EKGs during SVT showed heart rates up to 165, 168. EKG now in sinus rhythm is normal. He has had an echocardiogram which has not yet been reviewed He has a history of diabetes, hypertension, dyslipidemia He had exercise testing done back in April 2022. He was able to complete a workload of 6.29 METS and achieved 87% of predicted heart rate for age, no electrocardiographic evidence of myocardial ischemia Review of Systems Cardiovascular Cardiovascular: Reports as per HPI, Reports chest pain at rest, Denies chest pain with activity, Reports palpitations and Denies dyspnea on exertion Respiratory Respiratory: Denies dyspnea on exertion Endocrine Endocrine: Reports palpitations PFSH All Active Problems Myocardial infarction due to demand ischemia (Acute) SVT (supraventricular tachycardia) (Chronic) Callus (Acute) Screening for colon cancer (Acute) Diabetic retinopathy (Acute 09/04/12) Hyperlipidemia (Acute 09/05/13) Osteoarthritis of right knee (Acute) Positional vertigo (Acute) Essential hypertension (Acute) Chondrocalcinosis (Acute) knees Effusion, right knee (Acute) Osteoarthritis of knee (Acute) Diabetes mellitus type 2, insulin dependent (Acute) Bunion (Acute) Actinic keratosis (Acute) Erectile dysfunction (Acute) Callus of foot (Acute) History of total right knee replacement (Acute) Painful total knee replacement, right (Acute) Fibrosis of right knee joint (Acute) s/p arthroscopy and synovectomy of right TKA DOS: 07/27/21 Numbness of left hand (Acute) Bilateral carpal tunnel syndrome (Acute) s/p Left ECTR on 08/02/22 Cubital tunnel syndrome, bilateral (Acute) s/p Left cubital tunnel release on 08/02/22 Medical History Hx of vertigo Hx of type 2 diabetes mellitus Hx of gout Hx of essential hypertension Surgical History Hx of total knee arthroplasty R knee Hx of colonoscopy Extraction of cataract 04/29/14; DR. POP; LEFT, jpt. reports both sides Family History Mother , 80 Cancer Father , at 24 of blood poisoning No problems noted. Sister No problems noted. Brother No problems noted. Maternal Grandfather , 75 Heart disease Paternal Grandfather No problems noted. Maternal Grandmother No problems noted. Paternal Grandfather No problems noted. Son No problems noted. Son No problems noted. Son No problems noted. Daughter No problems noted. Social History Smoking/Tobacco Use Status: Never Second Hand Exposure: Yes Smoking risk assessment performed?: Yes Alcohol Intake: current Alcohol Intake frequency: a few times a week Alcohol type: beer Drug use: Never Substance use type: does not use Caregiver/Support person: No Household members: family Housing: house Communication Needs: None Do you need help understanding health information?: Often Pets and animals: Yes Pets and animals: dog(s) Sexually active: No Do you think of yourself as: straight/heterosexual Current gender identity: male What is your relationship status?: How often do you talk on the phone with friends or family?: three or more times per week How often do you get together with friends or relatives?: three or more times per week How often do you attend buddhist or hoahaoism services?: decline to answer Do you belong to any clubs or organized social groups?: yes Panel score (0-1 are the most socially isolated patients): 2 What type of physical activity do you participate in: other Details: Bowling Duration: 15-30 minutes/day Frequency: 1-2 times per week Bekah/Yazidi: None Special bekah needs: No Seatbelt use: always Drive intox or ride w/intox regional truck driver: No Do you feel safe at home: Yes Do you feel safe in your relationship?: Yes Exam Const Other: Well-developed well-nourished looks younger than stated age no acute distress Neck Other: Neck veins are flat carotid pulsations are normal there are no bruits Resp Auscultation: clear to auscultation bilaterally Cardio Other: Heart is regular there is a brief systolic ejection quality murmur Skin Other: Warm and dry Extrem Other: No significant edema Results Last Vital Signs Temp 36.9 C 01/09/23 06:36 Pulse 82 01/09/23 06:36 Resp 18 01/09/23 06:36 BP 134/72 01/09/23 06:36 Pulse Ox 95 01/09/23 06:36 Labs 01/08/23 06:48 01/09/23 06:32 Labs: Laboratory Results - last 24 hr 01/08/23 01/08/23 01/08/23 10:00 11:32 13:02 APTT 25.0 Sodium Potassium Chloride Carbon Dioxide Anion Gap BUN Creatinine Est GFR (CKD-EPI 2020) Glucose Calcium Magnesium Troponin I 632 H* 1491 H* 01/08/23 01/08/23 01/09/23 15:55 18:46 01:45 APTT 41.8 H 54.5 H Sodium Potassium Chloride Carbon Dioxide Anion Gap BUN Creatinine Est GFR (CKD-EPI 2020) Glucose Calcium Magnesium Troponin I 1628 H* 1563 H* 01/09/23 06:32 APTT Sodium 138 Potassium 4.2 Chloride 103 Carbon Dioxide 27.7 Anion Gap 7.3 BUN 20 H Creatinine 1.0 Est GFR (CKD-EPI 2020) 79.47 Glucose 208 H Calcium 9.2 Magnesium 2.0 Troponin I
[2023-01-09 10:12] LABS: PTT Activated 44.4 sec (23.6-32.8)
[2023-01-09] MEDS: Metoprolol CR 100 MG TABCR PO (10:26)
--- NOTE | 2023-01-09 11:34 | CMPROGNOTE_ITS ---
Date of service: 01/09/23 Time of Service: 11:34 Care Management Progress Note Progress Note Text Progress Note Text: S/O: Bradley was up ambulating in his room each time CM met with him. He is pleasant and easy to engage in conversation and visiting with family. He is being closely monitored and treated with Heparin. Dr. Buchanan and [facility] are consulted. [facility] did not feel transfer was needed, Per provider, Dewayne Clifford to provide her recommendations for a cardiac catheterization, if still needed and timing of an outpt MPI tomorrow. CM will follow. A: 72 year old female admitted to [facility] on 01/08/23 for SVT, tachycardia, chest pain P: Discharge planning continues, Dr. Buchanan is following and [facility] is consulted. CM will follow and continue to assess for discharge planning concerns.
--- NOTE | 2023-01-09 16:15 | W.PM.PROGNOT ---
Date of Service Date of service: 01/09/23 Time of Service: 16:15 Assessment and Plan Assessment and plan (1) SVT (supraventricular tachycardia): Status: Chronic Assessment and plan: Two known episodes; both treated with adenosine. Now in NSR. Monitoring on telemetry. No further SVT noted. Dr Buchanan, cardiology, recommended metoprolol ER 100mg daily and this was initaited (cardizem stopped). (2) Hyperlipidemia: Status: Acute Assessment and plan: He is on lovastatin 40mg daily. Decrease lovastatin to 20mg daily d/t initiation of cardizem and the interaction of the two. Qualifiers: Hyperlipidemia type: mixed hyperlipidemia Qualified Code(s): E78.2 - Mixed hyperlipidemia (3) Essential hypertension: Status: Acute Assessment and plan: On lisinopril and now metoprolol. Monitor. (4) Diabetes mellitus type 2, insulin dependent: Status: Acute Assessment and plan: Cont home glipizide 10mg BID Hold metformin in event of potential need for cardiac cath and EP studies, though doubt this will occur soon but likely later as an outpt. He has already [place] [facility] [place]. Monitor glucose ACHS SS correction dosing of insulin. (5) Myocardial infarction due to demand ischemia: Status: Acute Assessment and plan: Secondary to SVT. Echocardiogram initially concerning for a possible wall motion abnormality in the inferolateral area. Over[place] [facility] felt there was normal wall motion. [facility] [place] recommends continuing heparin drip for 48 hours and to discuss in the AM with Dr Buchanan regarding her recommendation for cardiac catheterization or not and timing of an outpt MPI. Subjective Subjective Patient reports: no new complaints, feels better and afebrile; denies nausea, vomiting or shortness of breath Interval history since last seen: No CP, diaphoresis, palpitations Exam Narrative Exam Narrative: General: NAD, cooperative. Head: Normocephalic, atraumatic Neck: No JVD, FROM ENT: MMM. Cardiac: RRR, S1, S2 Resp: No respiratory distress. CTAB. Abd: Soft, non-distended, nontender Extremities: No deformities. No peripheral edema. Objective Last Vital Signs Temp 36.4 C L 01/09/23 14:50 Pulse 76 01/09/23 14:50 Resp 17 01/09/23 14:50 BP 120/62 01/09/23 14:50 Pulse Ox 97 01/09/23 14:50 Laboratory Results - last 24 hr 01/08/23 01/08/23 01/09/23 15:55 18:46 01:45 APTT 41.8 H 54.5 H Sodium Potassium Chloride Carbon Dioxide Anion Gap BUN Creatinine Est GFR (CKD-EPI 2020) Glucose Calcium Magnesium Troponin I 1628 H* 1563 H* 01/09/23 01/09/23 06:32 09:50 APTT 44.4 H Sodium 138 Potassium 4.2 Chloride 103 Carbon Dioxide 27.7 Anion Gap 7.3 BUN 20 H Creatinine 1.0 Est GFR (CKD-EPI 2020) 79.47 Glucose 208 H Calcium 9.2 Magnesium 2.0 Troponin I PAWSS Have you Been Recently Intoxicated or Drunk Within the Last 30 days?: No Have you Ever Experienced Previous Episodes of Alcohol Withdrawal?: No Have you ever Experienced Withdrawal Seizures?: No Have you ever Experienced Delirium Tremens(DT)s?: No Have you ever undergone Alcohol Rehabilitation Treatment (i.e, inpt ot outpatient treatment programs)?: No Have you ever Experienced Blackouts?: No Have you ever Combined Alcohol with other Downers within the last 90 days?: No Have you ever Combined Alcohol with any other Substance of Abuse during the last 90 days?: No Positive Blood Alcohol level on Presentation? [PCS.BAL]: No Evidence of Increased Autonomic Activity (i.e. HR>120, tremor, sweating, agitation, nausea)?: No Result: 0 Time Spent with Patient Time Spent with Patient: 35-49 minutes Time was spent: preparing to see the patient(eg.review tests), obtaining and/or reviewing separately otained hiistory, ordering medications,tests, procedures, referring, communicating with other health residential care officer, indepentently interpreting results, counseling the patient, care coordination and other (Discussing patient with [facility] [place])
[2023-01-09] MEDS: Lovastatin 20 MG TAB PO (16:58)
[2023-01-09 17:02] LABS: PTT Activated 61.7 sec (23.6-32.8)
[2023-01-09 23:21] LABS: PTT Activated 49.5 sec (23.6-32.8)
[2023-01-09] MEDS: Heparin in 0.45% NaCl 25,000 UNIT/250 ML BAG 14.5 UNIT IV (23:51)
[2023-01-10 03:55] VITALS: BP 137/75; PULSE 79; RESP 15; TEMP 37; O2SAT 97
[2023-01-10 07:07] LABS: HCT 37.3 % (40.0-50.0); HGB 12.8 g/dL (13.5-17.5); MCHC 34.3 % (32.0-36.0); MCV 87 fL (80-95); MPV 10.6 fL (8.0-11.0); Platelet Count 189 10^3/uL (130-400); RBC 4.27 10^6/uL (4.36-5.78); RDW 13.9 % (11.8-14.1); WBC 6.98 10^3/uL (4.4-10.8)
[2023-01-10 07:19] LABS: PTT Activated 72.2 sec (23.6-32.8)
[2023-01-10 08:00] VITALS: BP 134/83; PULSE 80; RESP 20; TEMP 36.1; O2SAT 94
[2023-01-10] MEDS: Aspirin E.C. 81 MG TABEC PO (08:04)
[2023-01-10] MEDS: Lisinopril 20 MG TAB 40 MG PO (08:04)
[2023-01-10] MEDS: Magnesium Oxide 400 MG TAB PO (08:05)
[2023-01-10] MEDS: glipiZIDE 10 MG TAB PO (08:05)
[2023-01-10] MEDS: Metoprolol CR 100 MG TABCR PO (08:09)
[2023-01-10] MEDS: Insulin Aspart 300 UNITS/3 ML PEN SC ×2 (08:14→11:45)
--- NOTE | 2023-01-10 09:31 | DSE_ITS ---
Date of service: 01/10/23 Time of Service: 09:32 DS: Diagnosis Discharge Diagnosis (1) SVT (supraventricular tachycardia): Status: Chronic Asessment and Plan: Now on Metoprolol CR 100mg daily for prophylaxis. Valsalva and carotid massage discussed for recurrence. He had previously been referred to EP cardiology at [facility] but he states he hasn't been contacted; will send another referral. (2) Hyperlipidemia: Status: Acute Asessment and Plan: Cont lovastatin. (3) Essential hypertension: Status: Acute Asessment and Plan: Cont lisinopril. (4) Diabetes mellitus type 2, insulin dependent: Status: Acute Asessment and Plan: A1c 7.9 on 12/23/22 He will resume his home glipizide and metformin Continue to work on control / diet. (5) Myocardial infarction due to demand ischemia: Status: Acute Asessment and Plan: Dr Buchanan consulted and discussed with [facility] cardiology. Negative treadmill stress test in Apr of this year. Echocardiogram with EF of 50-55%. Initially a question of inferolateral wall motion abnormality but [facility] over-read felt wall motion was normal. Will schedule an outpt NM stress test. Cont ASA 81mg daily. Discharge Plan Disposition Patient Disposition: Home Condition: Good Discharge Details Reason For Visit: supraventricular tachycardia, chest pain rule out Admit Date/Time: 01/08/23 08:19 Admit Provider: Devin Hodges Attending Provider: Devin Hodges Primary Care Provider: Laron Prado Hospital Course Hospital Course: Mr Gonzalez is a 72 yo male with a PMH of DM, HTN, HLD that presented to the ED with CP that began at appx 0530. No shortness of breath, diaphoresis or pre syncope. Pain felt like reflux. He was found to be in SVT and was administered adenosine and converted to NSR. He had been evaluated in the ED on 12/29/22 for SVT and cardioverted with adenosine then as well. During the current ED admission, appx 30 seconds after he converted to sinus he had approximately 45 seconds of wide-complex rhythm , rate in the 80's then back to NSR. Repeat EKG w/o ST segment or T wave abnormalities to suggest occlusive PA. There were some slight ST depression s in V3, V4, V5, V6. No chest after cardioversion. He was admitted for telemetry monitoring, troponin trending, heparin drip, cardiology consult and an echocardiogram. Of note, he underwent an exercise stress test on 05/16/22: 1. The resting electrocardiogram was within normal limits 2. Patient exercised on the Yo protocol and completed a workload of 6.29 METS, stopping due to fatigue 3. Normal heart rate and blood pressure response to exercise. Patient achieved 87% of predicted heart rate for age 4. There was no electrocardiographic evidence of myocardial ischemia 5. Ventricular ectopy was noted See Diagnosis PCP f/u in 1 week. Home Meds and New Rx's Prescriptions: New metoprolol succinate 100 mg Tablet Extended Release 24 Hr 100 mg PO DAILY Qty: 30 0RF Continued triamcinolone acetonide 0.1 % cream 1 applic TP BID Qty: 30 2RF lisinopril 40 mg tablet 40 mg PO DAILY Qty: 90 3RF (DME) lancets Misc See Rx Instructions .ROUTE .MEDSUPPLY Qty: 100 3RF Rx Instructions: Twice daily bisacodyl [Dulcolax (bisacodyl)] 5 mg tablet,delayed release (DR/EC) 5 mg PO ONCE Qty: 4 0RF Rx Instructions: Take according to provider's instructions for colonoscopy prep. lovastatin 40 mg tablet 40 mg PO DAILY Qty: 90 4RF metformin 1,000 mg tablet 1,000 mg PO BID Qty: 180 1RF cinnamon bark 500 MG capsule 1,000 mg PO DAILY magnesium oxide 250 MG tablet 500 mg PO DAILY (DME) blood-glucose meter Kit See Rx Instructions .ROUTE .MEDSUPPLY Qty: 1 0RF Patient Comments: pt. reports he last tested last monday, states he only tests it occasionally Rx Instructions: As directed (DME) blood sugar diagnostic Strip See Rx Instructions .ROUTE .MEDSUPPLY Qty: 100 3RF Rx Instructions: bid (DME) Accu-Chek Guide test strips Strip See Rx Instructions .Route Qty: 100 3RF Rx Instructions: Daily glipizide 10 mg tablet 10 mg PO BID Qty: 180 3RF aspirin 81 mg Tablet 81 mg PO DAILY acetaminophen 500 mg tablet 500 mg PO Q6H PRN PRN (Reason: pain) Qty: 40 3RF ibuprofen 600 mg tablet 600 mg PO TID PRN (Reason: pain) Qty: 60 3RF Discharge Instructions Instructions: Supraventricular Tachycardia (DC) Referrals: Andrew Lipscomb [ NON-[facility] STAFF PHYSICIAN] - (SVT, NSTEMI.) Activity:: Activity as Tolerated Equipment/Supplies:: No Equipment Needed Diet:: Carb Counting Discharge Orders Discharge Orders: Discharge Order (Routine); Ordered 01/10/23 Ordered By: Devin Hodges Other Ambulatory Orders: NM MPI rest & stress grp (Routine) Location: None Selected Ordered By: Devin Hodges DS: Summary Time Spent with Patient providing and/or coordinating discharge services: Greater than 30 minutes Status at Discharge Functional status at discharge: independent ambulation Overall status at discharge: patient is back to baseline Mental Status: mental status grossly normal Speech and Movement: speech and movement normal Mood: congruent mood Affect: normal affect Exam Narrative Exam Narrative: General: NAD, cooperative. Sitting in chair. Daughter present. Neck: No JVD, FROM ENT: MMM. Cardiac: RRR, S1, S2 Resp: No respiratory distress. CTAB. Abd: Soft, non-distended, nontender Extremities: No deformities. No peripheral edema. Psych Mental Status: mental status grossly normal Speech and Movement: speech and movement normal Mood: congruent mood Affect: normal affect DS: Data Vitals/I&O Vitals and I&O: Vital Signs Temperature 36.1 C L 01/10/23 08:00 Temperature Source Tympanic 01/10/23 08:00 Pulse 80 01/10/23 08:00 Pulse Rhythm Regular 01/10/23 07:51 Pulse 85 01/08/23 09:10 Respiratory Rate 20 01/10/23 08:00 Respiratory Effort Normal, Non-Labored 01/10/23 07:51 Respiratory Depth Normal 01/10/23 07:51 Respiratory Pattern Normal 01/10/23 07:51 Blood Pressure 134/83 01/10/23 08:00 Blood Pressure Mean 108 01/08/23 09:00 Blood Pressure Position Sitting 01/08/23 06:34 Pulse Oximetry 94 01/10/23 08:00 Oxygen Delivery Method Room Air 01/10/23 08:00 Oxygen Flow Rate 0 01/10/23 08:00 Pain Level 0 01/10/23 03:55 Comment RN informed of BP 01/08/23 11:16 Intake & Output 01/09/23 01/09/23 01/10/23 11:59 23:59 11:59 Intake Total 172.500 / 345.792 173.292 / 345.792 227.166 / 227.166 Output Total 475 / 725 250 / 725 Balance -302.500 / -379.208 -76.708 / -379.208 227.166 / 227.166 Intake: IV 172.500 / 345.792 173.292 / 345.792 227.166 / 227.166 Output: Urine 475 / 725 250 / 725 Other: Urine Color Yellow Yellow Straw Urine Appearance Clear Clear Clear Urine Odor None Comment Voided in toilet, unknown amount. Stool Size Moderate Stool Characteristics Formed Brown Voiding Methods Urinal Urinal Data Completed and Pending Labs on day of discharge: Labs from last 24 hours 01/10/23 01/09/23 01/09/23 06:09 22:48 20:01 WBC 6.98 RBC 4.27 L Hgb 12.8 L Hct 37.3 L MCV 87 MCH 30.0 MCHC 34.3 RDW 13.9 Plt Count 189 MPV 10.6 APTT 72.2 H 49.5 H Cancelled 01/09/23 01/09/23 16:45 09:50 WBC RBC Hgb Hct MCV MCH MCHC RDW Plt Count MPV APTT 61.7 H 44.4 H PFSH All Active Problems Myocardial infarction due to demand ischemia (Acute) SVT (supraventricular tachycardia) (Chronic) Callus (Acute) Screening for colon cancer (Acute) Diabetic retinopathy (Acute 09/04/12) Hyperlipidemia (Acute 09/05/13) Osteoarthritis of right knee (Acute) Positional vertigo (Acute) Essential hypertension (Acute) Chondrocalcinosis (Acute) knees Effusion, right knee (Acute) Osteoarthritis of knee (Acute) Diabetes mellitus type 2, insulin dependent (Acute) Bunion (Acute) Actinic keratosis (Acute) Erectile dysfunction (Acute) Callus of foot (Acute) History of total right knee replacement (Acute) Painful total knee replacement, right (Acute) Fibrosis of right knee joint (Acute) s/p arthroscopy and synovectomy of right TKA DOS: 07/27/21 Numbness of left hand (Acute) Bilateral carpal tunnel syndrome (Acute) s/p Left ECTR on 08/02/22 Cubital tunnel syndrome, bilateral (Acute) s/p Left cubital tunnel release on 08/02/22 Medical History Hx of vertigo Hx of type 2 diabetes mellitus Hx of gout Hx of essential hypertension Surgical History Hx of total knee arthroplasty R knee Hx of colonoscopy Extraction of cataract 04/29/14; DR. POP; LEFT, jpt. reports both sides Family History Mother , 80 Cancer Father , at 24 of blood poisoning No problems noted. Sister No problems noted. Brother No problems noted. Maternal Grandfather , 75 Heart disease Paternal Grandfather No problems noted. Maternal Grandmother No problems noted. Paternal Grandfather No problems noted. Son No problems noted. Son No problems noted. Son No problems noted. Daughter No problems noted. Social History Smoking/Tobacco Use Status: Never Second Hand Exposure: Yes Smoking risk assessment performed?: Yes Alcohol Intake: current Alcohol Intake frequency: a few times a week Alcohol type: beer Drug use: Never Substance use type: does not use Caregiver/Support person: No Household members: family Housing: house Communication Needs: None Do you need help understanding health information?: Often Pets and animals: Yes Pets and animals: dog(s) Sexually active: No Do you think of yourself as: straight/heterosexual Current gender identity: male What is your relationship status?: How often do you talk on the phone with friends or family?: three or more times per week How often do you get together with friends or relatives?: three or more times per week How often do you attend anabaptism or gnosticist services?: decline to answer Do you belong to any clubs or organized social groups?: yes Panel score (0-1 are the most socially isolated patients): 2 What type of physical activity do you participate in: other Details: Bowling Duration: 15-30 minutes/day Frequency: 1-2 times per week Bekah/Pentecostal: None Special bekah needs: No Seatbelt use: always Drive intox or ride w/intox medical delivery driver: No Do you feel safe at home: Yes Do you feel safe in your relationship?: Yes Time Spent with Patient Time Spent with Patient: 45-69 minutes Time was spent: preparing to see the patient(eg.review tests), obtaining and/or reviewing separately otained hiistory, ordering medications,tests, procedures, referring, communicating with other health career representative, indepentently interpreting results, counseling the patient and care coordination
== END 2023-01-10 13:10 | disposition home or self-care (01) ==
LOC: ER 08:35 → MS 09:45
PROVIDERS: Family Medicine; General Practice; Student in an Organized Health Care Education/Training Program; Admitting Provider Family Medicine; Emergency Provider Emergency Medicine; PCP Nurse Practitioner Family; Visit Provider Family Medicine
DX: I47.10 Supraventricular tachycardia, unspecified (principal); I10 Essential (primary) hypertension; E78.2 Mixed hyperlipidemia; E11.9 Type 2 diabetes mellitus without complications; Z79.4 Long term (current) use of insulin; R07.89 Other chest pain; H81.10 Benign paroxysmal vertigo, unspecified ear; Z96.651 Presence of right artificial knee joint; T84.84XA Pain due to internal orthopedic prosthetic devices, implants and grafts, initial encounter; Z79.84 Long term (current) use of oral hypoglycemic drugs
CPT/HCPCS: 00123; 36415; 80048; 80053; 85027; 93005; 93306; 96374; 99223; 99291; 71045; 83735; 83880; 84443; 84484; 85025; 85730; 93010; 99233; 99239; G0378; J0153

== ENCOUNTER → 2023-01-09 07:40 | Outpatient (BNVA) | payer MEDICARE, OTHER, SELFPAY | PROVIDERS: PCP Nurse Practitioner Family; Referring Provider Nurse Practitioner Family; Visit Provider Internal Medicine Cardiovascular Disease ==

== ENCOUNTER 2023-01-12 01:24 | Outpatient (CLI) | payer MEDICARE, OTHER, SELFPAY ==
--- NOTE | 2023-01-12 | DI.NM_ITS ---
APPROVED REPORT Exam: Pharmacologic Patient Location: Out-Patient Room/Bed: Stress Nurse: Page Golden RN Ordering Provider:ARTHUR AMARO, Contact Number: [phone] BMI: 25.76 Baseline Rhythm: Sinus Rhythm Comment: Diffuse T wave abnormalities Indications: Chest pain, IN Medical History Medical History: HLD, DMT2, SVT, IN due to demand ischemia, HTN, vertigo, gout Cardiac Medications: Aspirin, glipizide, lisinopril, lovastatin, magnesium oxide, metformin, metoprol ol succinate Allergies: NKA Cardiac Risk Factors: HTN, HLD, CVD, diabetes Previous Cardiac Procedures: None Pretest Chest Pain Characteristics: None Exercise History: Physically active Physical Disabilities: None Lung Sounds: Clear to auscultation, Clear to auscultation Heart Sounds: Irregular Stress Test Details Test: Pharmacologic stress testing performed using 0.4 mg of regadenoson per 5 mL given IV over 10 s econds. Reason for pharmacologic stress test: Significant artifact. Nuclear Acquisition: Rest Tc-99m/Stress Tc-99m 1 day Rest Dose: 10.0 Date: 01/12/2023 Injection Time: 0930 Stress Isotope: Tc-99m Sestamibi. Dose: 31.0 Date: 01/12/2023 Injection Time: 1144 HR Resting HR Supine: 87 bpm Max Heart Rate (APMHR): 147.755117 bpm Resting HR Standin bpm Target HR (85% APMHR): 124.324242 bpm Max HR Achieved: 104 bpm % of APMHR: 70.75 Recovery HR: 96 bpm BP Resting BP Supine: 120/76 mmHg Resting BP Standin/78 mmHg Max BP: 142/80 mmHg Recovery BP: 140/72 mmHg ECG Resting ECG: Sinus Rhythm, diffuse resting ST abnormalities Ectopy: Occasional multifocal PVC's Stress ECG: Sinus Rhythm, diffuse T wave abnormalities ST Change: Nondiagnostic low heart rate Arrhythmia: Occasional multifocal PVC's Recovery ECG: Sinus Rhythm, diffuse T wave abnormalities Recovery ST Change: Nondiagnostic low heart rate Recovery Arrhythmia: Occasional multifocal PVC's Clinical Stress Symptoms: 4/10 chest pressure Angina Score: Non-Limiting Rate Pressure Product: 23525 Stress ECG Conclusion 1. Resting electrocardiogram shows left ventricular hypertrophy with repolarization abnormalities 2. Patient underwent testing using pharmacologic stress with regadenoson 3. Peak heart rate achieved was 71% of predicted for age 4. The electrocardiographic portion of the test was nondiagnostic 5. See MPI report Stress Test Summary STAGE HR BP SpO2 Symptoms NOTES Supine 87 120/76 Standing 91 130/78 4/10 chest pressure 1 min post Lexiscan injection 93 142/80 98 3 min post Lexiscan injection 97 130/68 98 6 min post Lexiscan injection 96 140/72 96 All symptoms resolved MPI Conclusion There is a small area of apical ischemia. There is no infarction Calculated EF is 35%, but visually appears higher without segmental wall motion abnormalities Radiologist Interpretation Radiologist agrees with Administration Vice President's Interpretation. Radiologist Interpretation by: Jimmy Orozco MD Interpretation Date/Time: 01/16/2023 15:15:20
[2023-01-12] MEDS: Regadenoson 0.4 MG/5 ML SYR IVP (12:05)
== END 2023-01-12 01:44 ==
LOC: DI 01:24
PROVIDERS: PCP Nurse Practitioner Family; Visit Provider Family Medicine
DX: R07.9 Chest pain, unspecified (principal)
CPT/HCPCS: 78452; 93016; 93018; 93017; J2785

== ENCOUNTER → 2023-01-23 15:30 | Outpatient (CLI) | payer MEDICARE, OTHER, SELFPAY ==
--- NOTE | 2023-01-23 15:22 | DI.RAD_ITS ---
Exam(s) XR FOOT LT COMPLETE EXAM: XR FOOT LT COMPLETE CLINICAL HISTORY: pain in foot, M79.671, M21.629 bunionette. TECHNIQUE: 2D digital imaging was performed. Three views. COMPARISON: No exams were available for comparison FINDINGS: BONES: No acute fracture is present. No bony destructive lesion is seen. Small heel spurs. JOINTS: No dislocation present. Minimal degenerative changes at the 1st MTP joint. No hallux valgu s. Plantar arch is maintained. SOFT TISSUE: Vascular calcifications. IMPRESSION: degenerative changes and heel spurs. DATA REPOSITORY: RADIATION DOSE DELIVERED:
--- NOTE | 2023-01-23 15:22 | DI.RAD_ITS ---
Exam(s) XR FOOT RT COMPLETE EXAM: XR FOOT RT COMPLETE CLINICAL HISTORY: pain right. TECHNIQUE: 2D digital imaging was performed. Three views. COMPARISON: CR XR FOOT LT COMPLETE from 01/23/2023 FINDINGS: BONES: No acute fracture is present. No bony destructive lesion is seen. Spurring at the medial sesa moid. Small heel spurs. Plantar arch is maintained. JOINTS: No dislocation present. SOFT TISSUE: Normal. IMPRESSION: Minimal degenerative changes. Small heel spurs. DATA REPOSITORY: RADIATION DOSE DELIVERED:
== END ==
PROVIDERS: PCP Nurse Practitioner Family; Visit Provider Podiatrist
DX: L84 Corns and callosities (principal); M79.672 Pain in left foot; M79.671 Pain in right foot
CPT/HCPCS: 73630

== ENCOUNTER → 2023-02-20 13:22 | Outpatient (BNVA) | payer MEDICARE, OTHER, SELFPAY | PROVIDERS: PCP Nurse Practitioner Family; Referring Provider Nurse Practitioner Family; Visit Provider Podiatrist | DX: E11.621 Type 2 diabetes mellitus with foot ulcer (principal); L97.521 Non-pressure chronic ulcer of other part of left foot limited to breakdown of skin; L84 Corns and callosities; M79.671 Pain in right foot; E11.40 Type 2 diabetes mellitus with diabetic neuropathy, unspecified; I73.9 Peripheral vascular disease, unspecified; D22.9 Melanocytic nevi, unspecified | CPT/HCPCS: 11102; 11300; 97597 ==

== ENCOUNTER 2023-02-22 10:55 | Outpatient (RCR) | payer MEDICARE, OTHER, SELFPAY | END 2023-02-23 23:59 | disposition home or self-care (01) | LOC: CR 10:55 | PROVIDERS: PCP Nurse Practitioner Family; Visit Provider Internal Medicine Cardiovascular Disease | DX: I20.0 Unstable angina (principal) ==

== ENCOUNTER 2023-03-22 08:12 | Outpatient (RCR) | payer MEDICARE, OTHER, SELFPAY | END 2023-03-26 23:59 | disposition home or self-care (01) | LOC: CR 08:12 | PROVIDERS: PCP Nurse Practitioner Family; Visit Provider Internal Medicine Cardiovascular Disease | DX: I25.10 Atherosclerotic heart disease of native coronary artery without angina pectoris (principal); Z95.5 Presence of coronary angioplasty implant and graft; Z51.89 Encounter for other specified aftercare | CPT/HCPCS: S9472 ==

== ENCOUNTER → 2023-04-24 13:08 | Outpatient (BNVA) | payer MEDICARE, OTHER, SELFPAY | PROVIDERS: PCP Nurse Practitioner Family; Referring Provider Nurse Practitioner Family; Visit Provider Podiatrist | DX: L84 Corns and callosities; M79.671 Pain in right foot; E11.40 Type 2 diabetes mellitus with diabetic neuropathy, unspecified; Z79.4 Long term (current) use of insulin; I73.9 Peripheral vascular disease, unspecified; L97.521 Non-pressure chronic ulcer of other part of left foot limited to breakdown of skin; L60.3 Nail dystrophy; L85.9 Epidermal thickening, unspecified; L65.9 Nonscarring hair loss, unspecified | CPT/HCPCS: 11055; 11721 ==

== ENCOUNTER 2023-04-26 08:09 | Outpatient (RCR) | payer MEDICARE, OTHER, SELFPAY | END 2023-04-26 23:59 | disposition home or self-care (01) | LOC: CR 08:09 | PROVIDERS: PCP Nurse Practitioner Family; Visit Provider Internal Medicine Interventional Cardiology | DX: I25.10 Atherosclerotic heart disease of native coronary artery without angina pectoris (principal); Z95.5 Presence of coronary angioplasty implant and graft | CPT/HCPCS: S9472 ==

== ENCOUNTER → 2023-05-08 08:54 | Outpatient (BNVA) | payer MEDICARE, OTHER, SELFPAY | PROVIDERS: PCP Nurse Practitioner Family; Referring Provider Nurse Practitioner Family; Visit Provider Podiatrist | DX: L84 Corns and callosities; M79.671 Pain in right foot; E11.40 Type 2 diabetes mellitus with diabetic neuropathy, unspecified; Z79.4 Long term (current) use of insulin; I73.9 Peripheral vascular disease, unspecified; L97.521 Non-pressure chronic ulcer of other part of left foot limited to breakdown of skin; D22.72 Melanocytic nevi of left lower limb, including hip | CPT/HCPCS: 99214 ==

== ENCOUNTER 2023-05-22 08:00 | Outpatient (RCR) | payer MEDICARE, OTHER, SELFPAY | END 2023-05-25 23:59 | disposition home or self-care (01) | LOC: CR 08:00 | PROVIDERS: PCP Nurse Practitioner Family; Visit Provider Internal Medicine Cardiovascular Disease | DX: I25.10 Atherosclerotic heart disease of native coronary artery without angina pectoris (principal); Z51.89 Encounter for other specified aftercare | CPT/HCPCS: S9472 ==

== ENCOUNTER 2023-06-05 08:00 | Outpatient (RCR) | payer MEDICARE, OTHER, SELFPAY | END 2023-06-25 23:59 | disposition home or self-care (01) | LOC: CR 08:00 | PROVIDERS: PCP Nurse Practitioner Family; Visit Provider Internal Medicine Cardiovascular Disease | DX: I25.10 Atherosclerotic heart disease of native coronary artery without angina pectoris (principal); Z51.89 Encounter for other specified aftercare | CPT/HCPCS: S9472 ==

== ENCOUNTER → 2023-09-21 10:58 | Outpatient (BNVA) | payer MEDICARE, OTHER, SELFPAY | PROVIDERS: PCP Nurse Practitioner Family; Referring Provider Nurse Practitioner Family; Visit Provider Physical Therapy Assistant | DX: Z12.11 Encounter for screening for malignant neoplasm of colon (principal) ==

== ENCOUNTER 2023-10-26 04:19 | Outpatient (CLI) | payer MEDICARE, OTHER, SELFPAY ==
[2023-10-26 12:33] LABS: Anion Gap 5.8 mmol/L (3-11); BUN 28 mg/dL (7-18); CO2 30.2 mmol/L (21.0-32.0); CREATININE 1.8 mg/dL (0.70-1.30); Calcium 9.5 mg/dL (8.5-10.1); Calculated LDL 49 mg/dL (<100); Chloride 98 mmol/L (98-107); Cholesterol 110 mg/dL (<200); Estimated GFR 39.25 (mL/min/1.73m2); Glucose 425 mg/dL (74-106); HDL Cholesterol 53 mg/dL (40-60); Potassium 4.7 mmol/L (3.5-5.1); Sodium 134 mmol/L (136-145); Triglyceride 43 mg/dL (<150)
[2023-10-26 21:00] LABS: PSA, Screening 0.5 ng/mL (<=6.5)
== END 2023-10-26 04:20 | disposition home or self-care (01) ==
LOC: LOS 04:21
PROVIDERS: PCP Nurse Practitioner Family; Visit Provider Nurse Practitioner Family
DX: E78.2 Mixed hyperlipidemia (principal); Z12.5 Encounter for screening for malignant neoplasm of prostate; E11.40 Type 2 diabetes mellitus with diabetic neuropathy, unspecified; Z79.4 Long term (current) use of insulin; I10 Essential (primary) hypertension
CPT/HCPCS: 36415; 80048; 80061; 84153; 83036

== ENCOUNTER → 2024-01-11 08:24 | Outpatient (BNVA) | payer MEDICARE, OTHER, SELFPAY | PROVIDERS: PCP Nurse Practitioner Family; Referring Provider Nurse Practitioner Family; Visit Provider Physical Therapy Assistant | DX: Z12.11 Encounter for screening for malignant neoplasm of colon (principal); I10 Essential (primary) hypertension; E11.9 Type 2 diabetes mellitus without complications ==

== ENCOUNTER 2024-01-29 06:11 | Day surgery (SDC) | payer MEDICARE, OTHER, SELFPAY ==
--- NOTE | 2024-01-28 11:14 | W.PM.DSUDISC ---
Date of service: 01/29/24 Time of Service: 07:53 Discharge Plan Disposition Patient Disposition: Home Condition: Good Discharge Details Reason For Visit: screening colonscopy Attending Provider: Junior Hood Primary Care Provider: Laron Prado Home Meds and New Rx's Prescriptions: Continued triamcinolone acetonide 0.1 % cream 1 applic TP BID Qty: 30 2RF ketoconazole 2 % cream 1 applic topical DAILY 90 Days Qty: 60 3RF Rx Instructions: Apply to toenails once daily lisinopril 40 mg tablet 40 mg PO DAILY Qty: 90 3RF hydrochlorothiazide 12.5 mg tablet 12.5 mg PO DAILY Qty: 90 3RF nitroglycerin 0.4 mg tablet, sublingual See Rx Instructions .ROUTE .COMPLEX Patient Comments: PLACE ONE TABLET UNDER THE TONGUE EVERY 5 MINUTES FOR UP TO 3 DOSES NEEDED FOR CHEST PAIN. IF CHEST PAIN STILL PERSISTS CONTACT 911 Rx Instructions: needles; (DME) pen needle, diabetic [BD Rhoda 2nd Gen Pen Needle] 32 gauge x 5/32 needle See Rx Instructions .ROUTE .MEDSUPPLY Qty: 1200 3RF Rx Instructions: Twice daily insulin glargine [Basaglar KwikPen U-100 Insulin] 100 unit/mL (3 mL) insulin pen 20 unit subcut QDAY Qty: 20 3RF cinnamon bark 500 MG capsule 1,000 mg PO DAILY magnesium oxide 250 MG tablet 500 mg PO DAILY (DME) blood-glucose meter Kit See Rx Instructions .ROUTE .MEDSUPPLY Qty: 1 0RF Patient Comments: pt. reports he last tested last monday, states he only tests it occasionally Rx Instructions: As directed (DME) blood sugar diagnostic Strip See Rx Instructions .ROUTE .MEDSUPPLY Qty: 100 3RF Rx Instructions: bid rosuvastatin 40 mg tablet 40 mg PO DAILY Qty: 90 3RF carvedilol 6.25 mg tablet 6.25 mg PO BID Qty: 180 3RF Rx Instructions: must administer with a meal/food per [facility] discharge 02/07/23 prasugrel 10 mg tablet 10 mg PO DAILY Qty: 90 3RF (DME) Accu-Chek Guide test strips Strip See Rx Instructions .Route Qty: 100 3RF Rx Instructions: Daily (DME) lancets Misc See Rx Instructions .ROUTE .MEDSUPPLY Qty: 100 3RF Rx Instructions: daily glipizide 10 mg tablet 10 mg PO BID Qty: 180 3RF metformin 1,000 mg tablet 1,000 mg PO BID Qty: 180 3RF aspirin 81 mg Tablet 81 mg PO DAILY acetaminophen 500 mg tablet 500 mg PO Q6H PRN PRN (Reason: pain) Qty: 40 3RF ibuprofen 600 mg tablet 600 mg PO TID PRN (Reason: pain) Qty: 60 3RF Discharge Instructions Additional Instructions: Bradley, it was a pleasure meeting you today, and I hope you are comfortable during the procedure. Your colonoscopy was totally normal. This is good for 10 years. Currently, the modern recommendations for screening colonoscopies extend up to age 85. Beyond that, the risks of the procedure seem to outweigh any potential benefit. I would encourage you to see how you feel over the next several years, and discuss this with your primary care physician. If you have any questions at all, please do not hesitate to call or ask at any point. 1. If tolerated, consume a soft, low fiber diet for 1-2 days. 2[address] Do not drive, drink alcohol, operate machinery, make critical decisions, or do activities that require coordination or balance for 24 hours. 3. Because air was put into your colon during the procedure, expelling air from your rectum (passing gas or farting) is normal. 4. You may not have a bowel movement for 1-3 days because of the colonoscopy prep. This is normal. 5. Go directly to the emergency room if you notice any of the following: Develop chills (warm to touch), or if you have a thermometer and your temperature is above 101 Difficulty breathing or difficultly swallowing Persistent vomiting Severe abdominal pain, other than gas cramps Severe chest pain Black, tarry stools Any bleeding ? exceeding one tablespoon 6. Call your physician if the site where your intravenous was started becomes red, swollen, painful, and warm to touch. 7. Your physician has reviewed your pre-procedure medications. Please continue to take those medications as previously ordered. You will be given specific information/education regarding any changes to your medications before leaving. Equipment/Supplies: Non-Weight Bearing Crutches Activity:: Activity as Tolerated Diet:: As Tolerated Discharge Orders Discharge Orders: Discharge Order (Routine); Ordered 01/28/24 Ordered By: Junior Hood DS: Diagnosis Discharge Diagnosis (1) Encounter for screening colonoscopy: Status: Acute
--- NOTE | 2024-01-28 11:16 | W.COLOREPORT ---
Date of service: 01/29/24 Time of Service: 07:54 Colonoscopy Report Date of procedure: 01/29/24 Pre-op diagnosis general: screening colonsocopy Post-op diagnosis procedure note: other (normal screening colonscopy) Procedure: colonoscopy Surgeon: Junior Hood Anesthesia Type: General:No Airway Estimated blood loss (mL): 0 Pathology: none sent Complications: None Disposition: same day Indications: Bradley is a 73 year old man who needs a screening colonoscopy Prep: Miralax/Dulcolax Procedure Start Time: 07:36 Procedure End Time: 07:47 Retraction Time: 6 Findings: Negative screening colonoscopy Procedure Description: After the induction of anesthesia, and with the patient in left lateral decubitus position, I began by performing an external anorectal exam.? Perineum and skin were normal, as was the anal verge.? There was no evidence of external hemorrhoids.? Next, I performed a digital rectal exam.? I did not appreciate any abnormal findings.? Next, I advanced a colonoscope into the rectal vault.? I performed retroflexion.? This appeared normal.? Using insufflation, I then advanced the colonoscope beyond the rectal folds and into the sigmoid colon before advancing towards the cecum.? The quality of the prep was outstanding.? The scope was noted to be in the cecum by identification of the ileocecal valve and appendiceal orifice.? I then began withdrawing the colonoscope using repeated irrigation as necessary for full evaluation of the colonic mucosa. ?Once the scope was withdrawn to the level of the rectum, great care was taken to examine portions of the rectal folds.? I saw no signs of tumors, polyps, or any other pathology. Finally, the scope was withdrawn and the patient was brought to the same-day surgery recovery unit as the anesthetic wore off. ?The findings and instructions were shared with the patient prior to discharge. Volborg Bowel Prep Volborg Bowel Prep Right Colon: 3 Left Colon: 3 Transverse Colon: 3 Total Score: 9
[2024-01-29 06:26] VITALS: BP 109/61; PULSE 76; RESP 18; TEMP 36.4; O2SAT 99
[2024-01-29] MEDS: Normal Saline Flush 10 ML SYR IV (06:52)
--- NOTE | 2024-01-29 07:00 | ANES.PREOP_ITS ---
General Info Date of Service Date Performed: 01/29/24 Height: 6 ft Weight: 85.9 kg Body Mass Index (BMI): 25.7 Surgical Procedure: Operation Date: 01/29/24 07:35 Proposed Procedure Side Surgeon luis Hood MD Meds Allergies and Home Medications Allergies Allergy/AdvReac Type Severity Reaction Status Date / Time No Known Allergies Allergy Verified 01/29/24 06:13 Home Medication ?Medication ?Instructions ?Recorded cinnamon bark 500 mg capsule 1,000 mg PO DAILY 08/30/12 magnesium oxide 500 mg PO DAILY 01/06/14 triamcinolone acetonide 0.1 % 1 applic topical BID apply to 01/10/19 topical cream elbow #30 grams blood-glucose meter #1 ea 02/05/20 blood sugar diagnostic #100 ea 04/08/22 aspirin 81 mg tablet 81 mg PO DAILY 05/11/22 acetaminophen 500 mg tablet 500 mg PO Q6H PRN PRN pain #40 tabs 08/02/22 ibuprofen 600 mg tablet 600 mg PO TID PRN pain #60 tabs 08/02/22 lisinopril 40 mg tablet 40 mg PO DAILY #90 tabs 01/18/23 ketoconazole 2 % topical cream 1 applic topical DAILY 3 months 01/23/23 #60 grams hydrochlorothiazide 12.5 mg tablet 12.5 mg PO DAILY #90 tabs 04/14/23 rosuvastatin 40 mg tablet 40 mg PO DAILY #90 tabs 06/21/23 carvedilol 6.25 mg tablet 6.25 mg PO BID #180 tabs 06/23/23 prasugrel 10 mg tablet 10 mg PO DAILY #90 tabs 06/23/23 blood sugar diagnostic (Accu-Chek #100 ea 07/19/23 Guide test strips) lancets #100 ea 07/19/23 glipizide 10 mg tablet 10 mg PO BID #180 tab-caps 10/02/23 metformin 1,000 mg tablet 1,000 mg PO BID #180 tab-caps 10/04/23 insulin glargine 100 unit/mL (3 20 unit (0.2 mL) subcut QDAY #20 mL 11/06/23 mL) subcutaneous pen (Basaglar KwikPen U-100 Insulin) nitroglycerin 0.4 mg sublingual See Rx Instructions .Route .COMPLEX 11/06/23 tablet pen needle, diabetic 32 gauge x #1,200 ea 11/06/23 5/32 (BD Rhoda 2nd Gen Pen Needle) Current Visit Medications: Current Medications Generic Name Dose Route Start Last Admin Trade Name Freq PRN Reason Stop Dose Admin Ringer's Solution 1,000 mls @ 80 mls/hr 01/29/24 06:00 IV 01/29/24 23:59 INFUSION ELIZABETH IV Miscellaneous Supplies 1 each 01/29/24 06:00 Iv Access IV 01/29/24 23:59 DIRECTED ELIZABETH Ondansetron HCl 4 mg 01/28/24 11:17 Ondansetron 4 Mg/2 Ml Vial IVP 02/27/24 11:16 Q4H PRN PRN Nausea / Vomiting Sodium Chloride 0 ml 01/29/24 06:00 01/29/24 06:52 Normal Saline Flush 10 Ml Syr IV 01/29/24 23:59 10 ml PRN PRN Administration Sodium Chloride 0 ml 01/29/24 06:00 Normal Saline 10 Ml Vial IJ 01/29/24 23:59 DIRECTED PRN Sterile Water 0 ml 01/29/24 06:00 Water,Injection,Sterile 10 Ml Vial IJ 01/29/24 23:59 DIRECTED PRN PFSH Active Problems Active Problems: Problem Status Onset Code Encounter for screening colonoscopy Acute Z12.11 Stage 3b chronic kidney disease Acute N18.32 Skin lesion Acute L98.9 Nevus Acute D22.9 PVD (peripheral vascular disease) Chronic I73.9 Pain in right foot Acute M79.671 Pain in left foot Acute M79.672 Tailors bunion Acute M21.629 Callus Acute L84 Diabetic retinopathy Acute 1113 E11.319 Hyperlipidemia Acute 12/14 E78.5 Osteoarthritis of right knee Acute M17.11 Positional vertigo Acute Essential hypertension Acute I10 Chondrocalcinosis Acute M11.20 Osteoarthritis of knee Acute M17.10 Diabetes mellitus type 2, insulin dependent Acute E11.9, Z79.4 Bunion Acute M21.619 Actinic keratosis Acute L57.0 Erectile dysfunction Acute N52.9 Callus of foot Acute L84 Numbness of left hand Acute R20.0 Bilateral carpal tunnel syndrome Acute G56.03 Cubital tunnel syndrome, bilateral Acute G56.23 Medical History Medical History Hx of vertigo Hx of type 2 diabetes mellitus Hx of gout Hx of essential hypertension Surgical History Surgical History 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 POP; LEFT, jpt. reports both sides Tobacco Smoking/Tobacco Use Status: Never Second hand exposure: Yes Alcohol Alcohol Intake: current Alcohol intake frequency: a few times a month Alcohol type: beer Substance Use Substance use: Never Substance use type: does not use Vital Signs and Lab Results Vital Signs Most Recent Vital Signs in EMR: Most Recent Vital Signs Temp Pulse Resp BP Pulse Ox 36.4 C L 76 18 109/61 99 01/29/24 06:26 01/29/24 06:26 01/29/24 06:26 01/29/24 06:26 01/29/24 06:26 Point of Care Results Point of Care Results: Finger Stick Blood Glucose 116 01/29/24 06:33 Lab Results Blood Type / Crossmatch: No Data to Display Complete Blood Count: No Data to Display Complete Metabolic Panel: No Data to Display Liver Function Panel: No Data to Display Coagulation Panel: No Data to Display Cardiac Panel: No Data to Display Arterial Blood Gas: No Data to Display Venous Blood Gas: No Data to Display Pancreas Panel: No Data to Display Thyroid Panel: No Data to Display Infectious Disease: No Data to Display Blood Cultures: No Data to Display Toxicology Panel: No Data to Display Imaging and Studies Imaging and Studies Study information below may be from another EMR and interpreted by another provider. Please see original notes in EMR for more complete details. EKG Summary: DATE/TIME OF SERVICE: 06/08/2027 : 1950PERFORMING LOCATION: [facility] APPROVED REPORT Exam: Resting ECG Patient Location: O HR:85 bpm ECG Measurements Heart Rate 85 AXIS VT 121 P 64 QRSd 92 QRS 17 QT 367 T7 QTc 436 Conclusion Sinus rhythm...normal P axis, V-rate 60- 99 Stress Test Summary: 01/12/23: MPI Conclusion There is a small area of apical ischemia. There is no infarction Calculated EF is 35%, but visually appears higher without segmental wall motion abnormalities Echocardiogram Summary: 01/09/23: Conclusion Normal left ventricular wall thickness and chamber size. Estimated ejection fraction is 50 to 55%. The inferoapical segment may be hypocontractile Normal right ventricular size and systolic function Borderline dilated left atrium. Normal right atrial size The aortic valve is sclerotic and trileaflet with mild regurgitation Normal mitral valve with mild regurgitation Anesthesia Assessment and Plan Anesthesia History Personal History: No History of Anesthesia Complications Family History: No Family History of Anesthesia Complications Exercise Tolerance Exercise Tolerance: Metabolic Equivalents>4 Pertinent Negatives Pertinent Negatives: No Symptoms of GERD and No Major Pulmonary Symptoms or Complaints Cardiac & Pulmonary Exam Cardiac Exam: Heart Murmur Present Pulmonary Exam: Clear Bilateral Breath Sounds Implantable Cardiac Device Does patient have a Pacemaker or an ICD?: No Airway Exam Known Difficult Airway: No Mallampati Class: 4 Mouth Opening: Narrow (< 3cm) Thyromental Distance: Greater than 3 cm Neck Range of Motion: Full ROM Neck Circumference: Normal Teeth Condition: Generalized Poor Dentition and Other (Has lower front teeth only, reports they are no loose) ASA Classification ASA Score: ASA 3 Emergency Case?: No NPO Status NPO Status: NPO Clears >2 hours, Solids >8 hours Anesthesia Plan Resuscitation Status: Full Code Anesthesia Technique: General Anesthesia Airway Planned: Natural Airway Monitors Used: Standard Monitors [place] Comments[place] [facility] [place] cardiac pressure/pain/sensation since stents approximately 1/year/ago. Denies symptoms of GERD, blood sugar well controlled. Plan for GA/natural airway.
[2024-01-29 07:18] VITALS: BMI 25.7
[2024-01-29] MEDS: Lactated Ringers 1,000 ML 30 ML IV (07:32)
[2024-01-29 07:50] VITALS: BP 90/56; PULSE 73; RESP 16; TEMP 36.4; O2SAT 98
--- NOTE | 2024-01-29 07:59 | W.ANESPOSTOP ---
Postoperative Evaluation Date, Time and Location Date Performed: 01/29/24 Time Performed: 07:59 Patient Location: Day Surgery Unit Vital Signs Most Recent Imported Vital Signs: Most Recent Vital Signs Temp Pulse Resp BP Pulse Ox 36.4 C L 76 18 109/61 99 01/29/24 06:26 01/29/24 06:26 01/29/24 06:26 01/29/24 06:26 01/29/24 06:26 Pain Score Most Recent Pain Score: Most Recent Pain Score Pain Level 0 01/29/24 06:26 Assessment Mental Status: Awake (Alert & Oriented to Patient Baseline) Airway and Respiratory Function: Patent airway with normal (patient baseline) respiratory exam Cardiovascular Function: Hemodynamically Stable Hydration Status: Adequately Hydrated Nausea & Vomiting: No Nausea or Vomiting Pain: Pt. Denies Any Pain Peripheral Nerve Block: Patient did not receive a nerve block
[2024-01-29 08:15] VITALS: BP 109/60; PULSE 70; RESP 16; TEMP 36.4; O2SAT 98
== END 2024-01-29 08:30 | disposition home or self-care (01) ==
LOC: SUR 06:11
PROVIDERS: PCP Nurse Practitioner Family; Visit Provider Surgery
PROC: 0DJD8ZZ Inspection of Lower Intestinal Tract, Via Natural or Artificial Opening Endoscopic (ICD-10-PCS; CPT 45378; principal; 2024-01-29 07:30)
DX: Z12.11 Encounter for screening for malignant neoplasm of colon (principal); E11.9 Type 2 diabetes mellitus without complications; I10 Essential (primary) hypertension; Z95.5 Presence of coronary angioplasty implant and graft
CPT/HCPCS: G0121; J2704

== ENCOUNTER 2024-11-11 11:32 | Outpatient (CLI) | payer MEDICARE, SELFPAY ==
[2024-11-11 10:43] LABS: Anion Gap 8.1 mmol/L (3-11); BUN 37 mg/dL (7-18); CO2 27.9 mmol/L (21.0-32.0); Calcium 9.9 mg/dL (8.5-10.1); Calculated LDL 41 mg/dL (<100); Chloride 101 mmol/L (98-107); Cholesterol 95 mg/dL (<200); Estimated GFR 48.55 (mL/min/1.73m2); Glucose 198 mg/dL (74-106); HDL Cholesterol 47 mg/dL (>or=40); Potassium 4.4 mmol/L (3.5-5.1); Sodium 137 mmol/L (136-145); Triglyceride 38 mg/dL (<150)
[2024-11-11 18:33] LABS: PSA, Screening 0.5 ng/mL (<=6.5)
== END 2024-11-11 11:33 | disposition home or self-care (01) ==
LOC: LBO 11:32
PROVIDERS: PCP Nurse Practitioner Family; Visit Provider Nurse Practitioner Family
DX: Z13.1 Encounter for screening for diabetes mellitus (principal); Z12.5 Encounter for screening for malignant neoplasm of prostate; Z13.6 Encounter for screening for cardiovascular disorders
CPT/HCPCS: 36415; 80048; 80061; 84153